=== PATIENT | female | born 1995 | race Two or more races ===

== ENCOUNTER 2020-06-27 07:45 | Outpatient (REF) | payer OTHER, MEDICAID, SELFPAY | END 2020-06-27 07:46 | disposition home or self-care (01) | LOC: HO.LAB 07:45 | PROVIDERS: Visit Provider Internal Medicine | DX: Z20.822 Contact with and (suspected) exposure to COVID-19 (principal) | CPT/HCPCS: 36415; C9803; U0003; U0005 ==

== ENCOUNTER 2021-02-13 17:44 | Emergency (ER) | payer OTHER, MEDICAID, SELFPAY ==
--- NOTE | 2021-02-13 17:48 | ECG_ITS ---
Test Reason : CHEST PAIN Blood Pressure : / mmHG Vent. Rate : 068 BPM Atrial Rate : 068 BPM P-R Int : 130 ms QRS Dur : 076 ms QT Int : 426 ms P-R-T Axes : 018 063 025 degrees QTc Int : 452 ms Normal sinus rhythm with sinus arrhythmia Normal ECG No significant changes seen Referred By: Generic ED Physician Electronically Signed By:SUE RAMIREZ MD
[2021-02-13 19:33] VITALS: BP 134/80; PULSE 89; RESP 20; TEMP 36.7; O2SAT 100; BMI 34.0
--- NOTE | 2021-02-13 19:41 | PC.NURSE ---
charge made aware pt is in the waiting room with a iv.
--- NOTE | 2021-02-13 20:55 | ED.GENADULT ---
HPI - General Adult General Chief complaint: General Medical Stated complaint: chest burning/extremity tingling Time Seen by Provider: 02/13/21 20:55 Source: patient Mode of arrival: ambulatory Limitations: no limitations History of Present Illness HPI narrative: Patient feel burning sensation to left side of the chest is on levothyroxine for last 3 weeks denies any palpitation or extra beats no shortness of breath no stomach issues chest pain increased on palpation and movements patient TSH was 8 in 11/09 Related Data Allergies Allergy/AdvReac Type Severity Reaction Status Date / Time baclofen [BACLOFEN] Allergy Unknown UNKNOWN Unverified 01/07/20 18:03 bee pollen [BEE STINGS] Allergy Unknown HIVES Unverified 01/07/20 18:03 tomato [TOMATO] Allergy Unknown HIVES Unverified 01/07/20 18:03 Review of Systems Review of Systems: Yes all other systems are reviewed and are negative [facility]LY [facility] Past Medical History Medical History Hyperthyroidism Social History Social History Advance Directives: No Advance Directives Information Provided: No Patient : No Physical Exam Vital Signs: Vital Signs: Last Vital Signs Temp 98.1 F 02/13/21 19:33 Pulse 89 02/13/21 19:33 Resp 20 02/13/21 19:33 BP 134/80 02/13/21 19:33 Pulse Ox 100 02/13/21 19:33 Body Mass Index 34.0 Appearance: Alert. Oriented X3. No acute distress. Eyes: No pallor icterus ENT: Pharynx normal. Oral Mucosa moist Neck: Normal inspection. Neck supple. CVS: Normal heart rate and rhythm. Pulses normal. Respiratory: No respiratory distress. Equal air entry bilateral, no wheezing/rales/rhonchi left chest wall tender+ at 2nd intercostal space Abdomen: Soft and nontender. Bowel sounds are present, no mass palpable, no CVA tenderness Skin: Skin warm and dry. Normal skin color. Normal skin turgor. Extremities: No lower extremity edema. No calf tenderness Neuro: Oriented X 3. Medical Decision Making Lab Data Lab results reviewed: Yes I reviewed the patient's lab results. Labs: Lab Results 10/25/21 10/25/21 Range/Units 21:34 21:34 Troponin I High Sens < 3.5 (<3.5-17.0) ng/L TSH 7.07 H (0.32-4.0) uIU/mL ECG Data Attestation: I personally reviewed and interpreted this ECG as follows: Interpretation: Normal sinus rhythm heart rate 68 beats per minute no acute ST-T changes no acute ischemia Discharge Plan Discharge Clinical Impression: Atypical chest pain Patient Disposition: Home, Self-Care Instructions: Noncardiac Chest Pain (ED) Additional Instructions: Continue your levothyroxine and follow with PCP
[2021-02-13 22:04] LABS: Troponin-I High Sensitivity < 3.5 ng/L (<3.5-17.0)
[2021-02-13 22:20] LABS: Thyroid Stimulating Hormone 7.07 uIU/mL (0.32-4.0)
--- NOTE | 2021-02-13 22:37 | PC.NURSE ---
Pt is resting in bed, report chest discomfort /burning believes it related to thyroid medication. EKG completed and labs collected .
[2021-02-13 22:41] VITALS: BP 120/90; PULSE 81; RESP 15; TEMP 36.6; O2SAT 98
== END 2021-02-13 23:06 | disposition home or self-care (01) ==
PROVIDERS: Emergency Provider Internal Medicine
DX: R07.89 Other chest pain (principal); E05.90 Thyrotoxicosis, unspecified without thyrotoxic crisis or storm; Z79.899 Other long term (current) drug therapy
CPT/HCPCS: 36415; 84443; 84484; 93005; 99283; 99284

== ENCOUNTER 2023-05-09 00:34 | Emergency (ER) | payer OTHER, SELFPAY ==
--- NOTE | ~2023-05-09 | US_ITS ---
EXAMINATION: US PELVIS CLINICAL INFORMATION: Bleeding. COMPARISON: None available. TECHNIQUE: Ultrasound of the pelvis is performed using both transabdominal and transvaginal transducers along with Doppler. Transvaginal imaging is performed due to inadequate visualization transabdominally. FINDINGS: Uterus: The uterus is anteverted and measures 7.6 x 3.5 x 4.5 cm. No myometrial lesions are seen. Nabothian cysts are noted. The endometrium is heterogeneous and hypervascular measuring up to 1.1 cm. The uterus is smooth in contour and has normal myometrial echogenicity. No visible fibroid. Adnexa: Both ovaries are visualized. There is normal color flow to the adnexa. There is no ovarian torsion. There is no pelvic ascites or fluid collection. Right ovary measures 4.2 x 2.2 x 2.3 cm. Left ovary measures 3.5 x 2.6 x 3.1 cm. There is a small amount of free fluid within the cul-de-sac likely physiologic. US/US pelvic and transvaginal IMPRESSION: 1. The endometrium is heterogeneous and hypervascular measuring up to 1.1 cm. 2. Nabothian cysts are noted. 3. Otherwise unremarkable examination.
[2023-05-09 00:38] VITALS: BP 143/87; PULSE 100; RESP 16; TEMP 36.9; O2SAT 98; BMI 34.9
--- NOTE | 2023-05-09 01:06 | ECG_ITS ---
Test Reason : WEAKNESS Blood Pressure : / mmHG Vent. Rate : 060 BPM Atrial Rate : 060 BPM P-R Int : 132 ms QRS Dur : 074 ms QT Int : 414 ms P-R-T Axes : 025 048 013 degrees QTc Int : 414 ms Sinus rhythm with marked sinus arrhythmia Otherwise normal ECG When compared with ECG of 13-FEB-2021 21:15, No significant change was found Referred By: Lacy Martinez Electronically Signed By:PRATIK TOLENTINO
[2023-05-09 01:27] LABS: Basophils Absolute Auto 0.1 X10*3/uL (0.0-0.2); Basophils Percent Auto 0.6 % (0-2); Eosinophils Absolute Auto 0.3 X10*3/uL (0.0-0.4); Eosinophils Percent Auto 3.1 % (0-4); Hematocrit 36.9 % (37.0-47.0); Hemoglobin 12.2 g/dl (12.0-16.0); Imm Gran Abs Auto 0.03 X10*3/uL (0.00-0.03); Imm Gran Pct Auto 0.3 % (0.0-0.4); Lymphocytes Absolute Auto 2.8 X10*3/uL (1.2-4.9); Lymphocytes Percent Auto 32.6 % (20-40); MANUAL DIFF FLAG NO; Mean Corpuscular HGB Conc 33.1 g/dl (31.0-35.0); Mean Corpuscular Hemoglobin 30.3 pg (27.0-33.0); Mean Corpuscular Volume 91.6 fL (80.0-98.0); Monocytes Absolute Auto 0.6 X10*3/uL (0.1-1.2); Monocytes Percent Auto 6.4 % (2-11); Neutrophils Absolute Auto 4.9 x10*3/uL (2.0-8.3); Platelet Count 326 X10*3/uL (160-400); Red Blood Count 4.03 X10*6/uL (4.20-5.50); Red Cell Distribution Width 12.5 % (11.0-16.0); White Blood Count 8.6 X10*3/uL (4.8-10.8)
[2023-05-09 01:34] LABS: Prothrombin Time 11.7 SEC (11.1-13.3)
[2023-05-09 01:37] LABS: Partial Thromboplastin Time 31.2 SEC (26.0-36.4)
--- NOTE | 2023-05-09 01:39 | ED.FEMALEGU ---
HPI - Female Genitourinary General Chief complaint: Vaginal Bleeding Stated complaint: Vaginal Bleeding Time Seen by Provider: 05/09/23 01:02 Source: patient and family Mode of arrival: ambulatory Limitations: no limitations History of Present Illness HPI Narrative: Patient comes to the emergency room accompanied by her aunt. Patient states that she has history of PCOS and history of heavy vaginal bleeding. Patient denies any previous history of pregnancies, patient states she is trying to become . However, for the last 3 days, patient has been bleeding heavier than usual, continuously passing blood clots. Patient states that about a week ago, she was not bleeding as bad, she called her primary care physician/OB Gyne and she was prescribed medroxyprogesterone. Patient states that since she started taking the medication, the bleeding worsened. Patient denies fever chills. Patient states that she also feels a lot of pressure when she urinates, no flank pain, no fever or chills. No dysuria. Unclear if she has hematuria due to the continues vaginal bleeding. Related Data Previous Rx's Medication Instructions Recorded tranexamic acid 650 mg tablet 650 mg PO TID 5 days #15 tabs 05/09/23 Allergies Allergy/AdvReac Type Severity Reaction Status Date / Time baclofen [BACLOFEN] Allergy Unknown UNKNOWN Verified 05/09/23 00:37 bee pollen [BEE STINGS] Allergy Unknown HIVES Verified 05/09/23 00:37 tomato [TOMATO] Allergy Unknown HIVES Verified 05/09/23 00:37 Review of Systems Review of Systems: Constitutional : No Weight loss, No Fever, No Chills, No Night Sweats, No Fatigue, No Malaise ENT/Mouth : No Hearing loss, No Ear Pain, No Nasal Congestion, No Sinus Pain, No Hoarseness, No sore throat, No Rhinorrhea, No Swallowing Difficulty Eyes: No Eye Pain, No Swelling, No Redness, No Foreign Body, No Discharge, No Vision Changes Cardiovascular : No Chest Pain, No SOB, No Dyspnea on Exertion, No Orthopnea, No Edema, No Palpitations Respiratory : No Cough, No Sputum, No Wheezing, No Smoke Exposure, No Dyspnea Gastrointestinal : No Nausea, No Vomiting, No Diarrhea, No Constipation, No abdominal Pain, No Hematochezia, No Melena Genitourinary : Complaining of heavy irregular vaginal bleeding, No Dysuria, No Urinary Frequency, No Hematuria, No Urinary Incontinence, No Urgency, No Flank Pain, No Urinary Flow Changes, No Hesitancy Musculoskeletal : No joint pain, No Myalgias, No Joint Swelling Skin : No Skin Lesions, No rash Neuro : No Weakness, No Numbness, No Paresthesias, No Loss of Consciousness, No Dizziness, No Headache Psych : No Anxiety/Panic, No Depression, No SI/HI/AH/VH, No Social Issues, Heme/Lymph: No Bruising, No Bleeding,No Lymphadenopathy Endocrine : No Polyuria, No Polydipsia, No Temperature Intolerance PMFSH Past Medical History Onset Date is defined in the Problem List Problems that require an onset date and time if occurred within 24 hrs of arrival to the ED Aortic Dissection and Rupture; Neurologic impairment; Cardiopulmonary Arrest; Endotracheal Intubation; Insertion or Replacement of Mechanical Circulatory Assist Device Medical History (Updated 05/09/23 @ 05:46 by Lacy Martinez MD) Menorrhagia PCOS (polycystic ovarian syndrome) Hyperthyroidism Social History Social History Alcohol intake: current Alcohol intake frequency: holidays/special occasions only Patient Tobacco Use Status: Never used Tobacco Advance Directives: No Advance Directives Information Provided: Yes Patient : No Physical Exam Vital Signs: Vital Signs: Last Vital Signs Temp 98.1 F 05/09/23 01:42 Pulse 62 05/09/23 01:42 Resp 16 05/09/23 01:42 BP 120/76 05/09/23 01:42 Pulse Ox 97 05/09/23 01:42 O2 Del Method Room Air 05/09/23 01:42 BMI result Body Mass Index 34.9 Const: Other: Appearance: Alert. Oriented X3. No acute distress. Eyes: Pupils equal, round and reactive to light. ENT: Pharynx normal. Neck: Normal inspection. Neck supple. No lymph nodes noted. No crepitus CVS: Normal heart rate and rhythm. Pulses normal. Normal S1 and S2 Respiratory: No respiratory distress. Breath sounds normal. No Wheezing. No rales Abdomen: Soft and nontender. No rigidity. No distention. : Moderate vaginal bleeding, large amount of blood clots in the vaginal vault, no tissue or clots seen in the cervical os, no obvious lacerations in the vaginal wall Skin: Skin warm and dry. Normal skin color. Normal skin turgor. Extremities: No lower extremity edema. No Lacerations. No Rash Neuro: Oriented X 3. No motor deficit. No sensory deficit. Moving all extremities. No slurred speech. CN 2 through 12 grossly intact Psych: calm, cooperative, normal affect Course Course Course Narrative: -patient has a fair amount of blood clots and blood in the vaginal canal. -patient currently taking medroxyprogesterone which has been prescribed by her OB Gyne. -patient being given p.o. TXA. Patient given Zofran and Compazine prior to TXA for nausea prevention Medications Administered Generic Name Dose Route Start Last Admin Trade Name Freq PRN Reason Stop Dose Admin Tranexamic Acid 1,000 mg/ 260 mls @ 32.5 mls/hr 05/09/23 01:36 05/09/23 02:06 Sodium Chloride IV 05/09/23 09:35 32.5 mls/hr .Q8H ONE Administration Discontinued Medications Generic Name Dose Route Start Last Admin Trade Name Freq PRN Reason Stop Dose Admin Acetaminophen 975 mg 05/09/23 03:58 05/09/23 04:05 Acetaminophen 325 Mg Tablet PO 05/09/23 03:59 975 mg ONCE ONE Administration Ondansetron HCl 4 mg 05/09/23 01:36 05/09/23 01:46 Ondansetron Odt 4 Mg Tab.Rapdis TRANSLINGU 05/09/23 01:37 4 mg ONCE ONE Administration Prochlorperazine Maleate 10 mg 05/09/23 01:36 05/09/23 01:46 Prochlorperazine Maleate 5 Mg Tablet PO 05/09/23 01:37 10 mg ONCE ONE Administration Medical Decision Making Medical Decision Making [facility] Narrative: -my interpretation of labs: Normal hemoglobin -ultrasound pending -patient denies any history of bleeding disorders or blood clot disorders, no migraine history, nonsmoker -an H&H was drawn, the levels of hemoglobin decreased from 12.2-11.2. However, after speaking with the patient's nurse, the blood was drawn from a line, probably diluted with saline. -patient reports that after taking p.o. tranexamic acid, the bleeding has significantly slowed down. -we will repeat H&H from direct venous puncture in 1 hour -my interpretation of ultrasound: Endometrium seems to be approximately a cm thick -repeat H&H shows hemoglobin of 11. However, the vaginal bleeding significantly decreased. Patient is asymptomatic. -I discussed the patient with Dr. Carter. Recommendations: Discontinue progesterone, start listed a 1300 mg p.o. t.i.d. for 3-5 days. Patient instructed to call her OB Gyne today. Patient has an appointment pending for tomorrow. I discussed with the patient that ideally she should be seen today. If anything changes between the time of discharge and her appointment with her OBGYN, she needs to come immediately to the emergency room. Patient agrees with plan. Differential Diagnosis Differential Diagnoses: The differential diagnosis associated with the presentation includes (Menorrhagia, metrorrhagia, uterine polyps, fibroids, PCOS) Admission/Observation Consideration of admission/observation: Escalation of care including admission/observation considered (Given patient's symptoms and physical exam, admission was considered) Lab Data MDM Lab Attestation statement: I reviewed the patient's lab results. 05/09/23 04:34 05/09/23 01:20 Labs: Lab Results 05/09/23 05/09/23 05/09/23 Range/Units 01:20 01:45 03:28 WBC 8.6 (4.8-10.8) X10*3/uL RBC 4.03 L (4.20-5.50) X10*6/uL Hgb 12.2 11.2 L (12.0-16.0) g/dl Hct 36.9 L 33.9 L (37.0-47.0) % MCV 91.6 (80.0-98.0) fL MCH 30.3 (27.0-33.0) pg MCHC 33.1 (31.0-35.0) g/dl RDW 12.5 (11.0-16.0) % Plt Count 326 (160-400) X10*3/uL MPV 11.0 (9.4-12.3) fL Immature Gran % (Auto) 0.3 (0.0-0.4) % Neut % (Auto) 57.0 (45-73) % Lymph % (Auto) 32.6 (20-40) % [place] % (Auto) 6.4 (2-11) % Eos % (Auto) 3.1 (0-4) % Baso % (Auto) 0.6 (0-2) % Lymph # (Auto) 2.8 (1.2-4.9) X10*3/uL [place] # (Auto) 0.6 (0.1-1.2) X10*3/uL Eos # (Auto) 0.3 (0.0-0.4) X10*3/uL Baso # (Auto) 0.1 (0.0-0.2) X10*3/uL Abs Immat Gran (auto) 0.03 (0.00-0.03) X10*3/uL Absolute Neuts (auto) 4.9 (2.0-8.3) x10*3/uL Absolute Nucleated RBC 0.000 (0.0-0.012) X10*3/uL Nucleated RBC % (auto) 0.0 (0.0-0.2) /100WBC PT 11.7 (11.1-13.3) SEC INR 1.0 (0.9-1.1) APTT 31.2 (26.0-36.4) SEC Sodium 139 (135-145) mmol/L Potassium 3.9 (3.3-5.1) mmol/L Chloride 108 (96-108) mmol/L Carbon Dioxide 22 (22-29) mmol/L Anion Gap 13 (12-20) BUN 17 H (9-16) mg/dL Creatinine 0.75 (0.5-1.4) mg/dL Estim Creat Clear Calc 111.6 Estimated GFR > 60 Random Glucose 89 (60-115) mg/dL Calcium 9.9 (8.4-10.2) mg/dL Total Bilirubin 0.3 (0.0-1.0) mg/dL AST 18 (5-31) U/L ALT 20 (0-31) U/L Alkaline Phosphatase 86 (39-117) U/L Troponin I High Sens < 2.7 (<3.5-17.0) ng/L Total Protein 7.9 (6.5-8.0) g/dL Albumin 4.3 (3.5-5.0) g/dL Beta HCG, Quant < 2 mIU/mL Urine Color Straw Urine Appearance Cloudy Urine pH 5.5 (5.0-9.0) Ur Specific [place] 1.025 (1.005-1.025) Urine Protein Negative (Neg-Trace) mg/dL Urine Glucose (UA) Negative (Negative) mg/dL Urine Ketones Negative (Negative) mg/dL Urine Blood Large (3+) H (Negative) Urine Nitrite Negative (Negative) Ur Leukocyte Esterase Trace H (Negative) Urine RBC >20 H (0-2) /HPF Urine WBC 0-5 (0-5) /HPF Ur Squamous Epith Cells 0-2 (0-2) /HPF Urine Bacteria None Seen (None Seen) Hyaline Casts 0-2 (0-2) /LPF 05/09/23 Range/Units 04:34 WBC 8.4 (4.8-10.8) X10*3/uL RBC 3.66 L (4.20-5.50) X10*6/uL Hgb 11.0 L (12.0-16.0) g/dl Hct 33.3 L (37.0-47.0) % MCV 91.0 (80.0-98.0) fL MCH 30.1 (27.0-33.0) pg MCHC 33.0 (31.0-35.0) g/dl RDW 12.3 (11.0-16.0) % Plt Count 315 (160-400) X10*3/uL MPV 10.7 (9.4-12.3) fL Immature Gran % (Auto) 0.2 (0.0-0.4) % Neut % (Auto) 59.3 (45-73) % Lymph % (Auto) 30.9 (20-40) % [place] % (Auto) 6.1 (2-11) % Eos % (Auto) 3.0 (0-4) % Baso % (Auto) 0.5 (0-2) % Lymph # (Auto) 2.6 (1.2-4.9) X10*3/uL [place] # (Auto) 0.5 (0.1-1.2) X10*3/uL Eos # (Auto) 0.3 (0.0-0.4) X10*3/uL Baso # (Auto) 0.0 (0.0-0.2) X10*3/uL Abs Immat Gran (auto) 0.02 (0.00-0.03) X10*3/uL Absolute Neuts (auto) 5.0 (2.0-8.3) x10*3/uL Absolute Nucleated RBC 0.000 (0.0-0.012) X10*3/uL Nucleated RBC % (auto) 0.0 (0.0-0.2) /100WBC PT (11.1-13.3) SEC INR (0.9-1.1) APTT (26.0-36.4) SEC Sodium (135-145) mmol/L Potassium (3.3-5.1) mmol/L Chloride (96-108) mmol/L Carbon Dioxide (22-29) mmol/L Anion Gap (12-20) BUN (9-16) mg/dL Creatinine (0.5-1.4) mg/dL Estim Creat Clear Calc Estimated GFR Random Glucose (60-115) mg/dL Calcium (8.4-10.2) mg/dL Total Bilirubin (0.0-1.0) mg/dL AST (5-31) U/L ALT (0-31) U/L Alkaline Phosphatase (39-117) U/L Troponin I High Sens (<3.5-17.0) ng/L Total Protein (6.5-8.0) g/dL Albumin (3.5-5.0) g/dL Beta HCG, Quant mIU/mL Urine Color Urine Appearance Urine pH (5.0-9.0) Ur Specific [place] (1.005-1.025) Urine Protein (Neg-Trace) mg/dL Urine Glucose (UA) (Negative) mg/dL Urine Ketones (Negative) mg/dL Urine Blood (Negative) Urine Nitrite (Negative) Ur Leukocyte Esterase (Negative) Urine RBC (0-2) /HPF Urine WBC (0-5) /HPF Ur Squamous Epith Cells (0-2) /HPF Urine Bacteria (None Seen) Hyaline Casts (0-2) /LPF Independent Interpretation I performed an independent interpretation of an: Ultrasound Radiology Impression Discussion of test interpretation with radiology: I have reviewed the radiologist's reading. Radiologist Impression: FINDINGS: Uterus: The uterus is anteverted and measures 7.6 x 3.5 x 4.5 cm. No myometrial lesions are seen. Nabothian cysts are noted. The endometrium is heterogeneous and hypervascular measuring up to 1.1 cm. The uterus is smooth in contour and has normal myometrial echogenicity. No visible fibroid. Adnexa: Both ovaries are visualized. There is normal color flow to the adnexa. There is no ovarian torsion. There is no pelvic ascites or fluid collection. Right ovary measures 4.2 x 2.2 x 2.3 cm. Left ovary measures 3.5 x 2.6 x 3.1 cm. There is a small amount of free fluid within the cul-de-sac likely physiologic. US/US pelvic and transvaginal IMPRESSION: 1. The endometrium is heterogeneous and hypervascular measuring up to 1.1 cm. 2. Nabothian cysts are noted. 3. Otherwise unremarkable examination Independent Historian Clinical information obtained from an independent historian. History obtained from or confirmed by: Other (Aunt) Critical Care Time Critical Care Time Critical Care Time: Yes Total Critical Care Time: 75 Attestation: I have personally provided critical care time. Time includes review of lab data, radiology results, discussion with consultants, and monitoring for potential decompensation. Intervention performed as documented. Discharge Plan Discharge Clinical Impression: Menorrhagia Patient Disposition: Home, Self-Care Instructions: Dysfunctional Uterine Bleeding (ED) Additional Instructions: Please follow-up with your primary care physician tomorrow. If you have any worsening or new symptoms, please return to the emergency room or call 911 Prescriptions: New tranexamic acid 650 mg tablet 650 mg PO TID 5 Days Qty: 15 0RF Rx Instructions: Take medication for 3 days. If bleeding continues, continue medication up to 5 days
[2023-05-09 01:42] VITALS: BP 120/76; PULSE 62; RESP 16; TEMP 36.7; O2SAT 97
[2023-05-09] MEDS: Ondansetron ODT 4 MG TAB.RAPDIS TRANSLINGU (01:46)
[2023-05-09] MEDS: Prochlorperazine Maleate 5 MG TABLET 10 MG PO (01:46)
[2023-05-09 01:48] LABS: Alanine Aminotransferase 20 U/L (0-31); Albumin Level 4.3 g/dL (3.5-5.0); Alkaline Phosphatase 86 U/L (39-117); Anion Gap 13 (12-20); Aspartate Amino Transferase 18 U/L (5-31); Bilirubin Total 0.3 mg/dL (0.0-1.0); Blood Urea Nitrogen 17 mg/dL (9-16); Calcium 9.9 mg/dL (8.4-10.2); Carbon Dioxide 22 mmol/L (22-29); Chloride 108 mmol/L (96-108); Creatinine Clr Calc Pharmacy 111.6; Estimated Glomerular Filt Rate > 60; Glucose Random 89 mg/dL (60-115); HCG Quantitative < 2 mIU/mL; Potassium 3.9 mmol/L (3.3-5.1); Sodium 139 mmol/L (135-145); Total Protein 7.9 g/dL (6.5-8.0); Troponin-I High Sensitivity < 2.7 ng/L (<3.5-17.0)
[2023-05-09 01:59] LABS: Appearance Urine Cloudy; Color Urine Straw; Glucose Urine UA Negative (Negative); Leukocyte Esterase Urine Trace (Negative); Nitrite Urine Negative (Negative); PH 5.5 (5.0-9.0); Specific Gravity - Urine 1.025 (1.005-1.025); UMIC TRIGGER UACC YES; Urine Blood Large (3+) (Negative); Urine Ketones Negative (Negative); Urine Protein Negative (Neg-Trace)
[2023-05-09 02:02] LABS: Bacteria Urine None Seen (None Seen); Hyaline Casts Urine 0-2 /LPF (0-2); RBC Urine >20 /HPF (0-2); Squamous Epithelial Cell Urine 0-2 /HPF (0-2); WBC Urine 0-5 /HPF (0-5)
[2023-05-09] MEDS: Tranexamic Acid 1,000 MG in 0.9 % Sodium Chloride 250 ML 32.5 MG IV (02:06)
--- NOTE | 2023-05-09 02:07 | PC.NURSE ---
TXA GIVEN PO BY PROVIDER VERBAL ORDER
[2023-05-09 03:33] LABS: Hematocrit 33.9 % (37.0-47.0); Hemoglobin 11.2 g/dl (12.0-16.0)
[2023-05-09] MEDS: Acetaminophen 325 MG TABLET 975 MG PO (04:05)
[2023-05-09 04:38] LABS: MANUAL DIFF FLAG NO
[2023-05-09 04:39] LABS: Basophils Percent Auto 0.5 % (0-2); Eosinophils Absolute Auto 0.3 X10*3/uL (0.0-0.4); Hematocrit 33.3 % (37.0-47.0); Imm Gran Abs Auto 0.02 X10*3/uL (0.00-0.03); Imm Gran Pct Auto 0.2 % (0.0-0.4); Lymphocytes Absolute Auto 2.6 X10*3/uL (1.2-4.9); Lymphocytes Percent Auto 30.9 % (20-40); Mean Corpuscular Hemoglobin 30.1 pg (27.0-33.0); Mean Platelet Volume 10.7 fL (9.4-12.3); Monocytes Absolute Auto 0.5 X10*3/uL (0.1-1.2); Monocytes Percent Auto 6.1 % (2-11); Neutrophils Percent Auto 59.3 % (45-73); Platelet Count 315 X10*3/uL (160-400); Red Blood Count 3.66 X10*6/uL (4.20-5.50); Red Cell Distribution Width 12.3 % (11.0-16.0); White Blood Count 8.4 X10*3/uL (4.8-10.8)
[2023-05-09 05:49] VITALS: BP 133/86; PULSE 77; RESP 16; TEMP 36.8; O2SAT 99
--- NOTE | 2023-05-09 06:15 | PM.GYNCN ---
[employer]OUSSE[employer] CONSULTANT - CN: HPI Data of Consult Consult date: 05/09/23 Primary Care Provider: Yordy Restrepo DO Consult Narrative Narrative: I was consulted on Nava Chua who is a 28 year old female presenting to the emergency room with heavy vaginal bleeding for the last 3 days, patient has been bleeding heavier than usual associated with passage of blood clots. Patient states that about a week ago, she was not bleeding as bad, she called her clinical review nurse and she was prescribed medroxyprogesterone. Patient states that since she started taking the medication, the bleeding worsened. No other associated symptom cc:: CC: OB PMFSH Past Medical History Medical History Menorrhagia PCOS (polycystic ovarian syndrome) Hyperthyroidism Social History Social History Alcohol intake: current Alcohol intake frequency: holidays/special occasions only Patient Tobacco Use Status: Never used Tobacco Advance Directives: No Advance Directives Information Provided: Yes Patient : No Meds Allergies Allergy/AdvReac Type Severity Reaction Status Date / Time baclofen [BACLOFEN] Allergy Unknown UNKNOWN Verified 05/09/23 00:37 bee pollen [BEE STINGS] Allergy Unknown HIVES Verified 05/09/23 00:37 tomato [TOMATO] Allergy Unknown HIVES Verified 05/09/23 00:37 [employer] Physical Exam Vitals Vital signs: Temp Pulse Resp BP Pulse Ox O2 Del Method 98.3 F 77 16 133/86 99 Room Air 05/09/23 05:49 05/09/23 05:49 05/09/23 05:49 05/09/23 05:49 05/09/23 05:49 05/09/23 05:49 BMI result Body Mass Index 34.9 Additional Comments: Physical exam described by Dr. Martinez as the following: initial pelvic exam showed moderate amount of blood was presence of blood clots, the patient was given tranexamic acid orally in 2 hours afterwards repeat pelvic exam showed last bleeding [id number] , no other significant finding [employer] CONS[employer] - Results Labs 05/09/23 04:34 05/09/23 01:20 Labs: Short CBC 05/09/23 05/09/23 05/09/23 Range/Units 01:20 03:28 04:34 WBC 8.6 8.4 (4.8-10.8) X10*3/uL Hgb 12.2 11.2 L 11.0 L (12.0-16.0) g/dl Hct 36.9 L 33.9 L 33.3 L (37.0-47.0) % Plt Count 326 315 (160-400) X10*3/uL BMP 05/09/23 01:20 Sodium 139 Potassium 3.9 Chloride 108 Carbon Dioxide 22 BUN 17 H Creatinine 0.75 Calcium 9.9 Liver Function 05/09/23 Range/Units 01:20 Total Bilirubin 0.3 (0.0-1.0) mg/dL AST 18 (5-31) U/L ALT 20 (0-31) U/L Alkaline Phosphatase 86 (39-117) U/L Albumin 4.3 (3.5-5.0) g/dL Urine 05/09/23 Range/Units 01:45 Urine Color Straw Urine Appearance Cloudy Urine pH 5.5 (5.0-9.0) Ur Specific [place] 1.025 (1.005-1.025) Urine Protein Negative (Neg-Trace) mg/dL Urine Glucose (UA) Negative (Negative) mg/dL Imaging US - abdomen: Radiologist's impression: ITS Impressions Pelvic/Transvag US 05/09/23 02:59 IMPRESSION: 1. The endometrium is heterogeneous and hypervascular measuring up to 1.1 cm. 2. Nabothian cysts are noted. 3. Otherwise unremarkable examination. Assessment and Plan (1) Abnormal uterine bleeding (AUB): Status: Acute Recommended the following to Dr Martinez: The patient needs endometrial biopsy to rule out endometrial pathology including endometrial hyperplasia and/or malignancy Discontinue progesterone and start Lysteda 1300 mg p.o. t.i.d. for 3-5 days and instructions to be given to patient to call her OBGYN today to be evaluated, iron sulfate 325 mg p.o. q.d., to come back to emergency room in case of recurrence of her heavy vaginal bleeding. I spent a total of 20 minutes reviewing the chart, communicating to the emergency room provider and documenting the medical record
== END 2023-05-09 05:56 | disposition home or self-care (01) ==
PROVIDERS: Emergency Provider Emergency Medicine; PCP Student in an Organized Health Care Education/Training Program
DX: N92.0 Excessive and frequent menstruation with regular cycle (principal); I49.8 Other specified cardiac arrhythmias; R10.2 Pelvic and perineal pain; Z79.899 Other long term (current) drug therapy
CPT/HCPCS: 36415; 76830; 76856; 80053; 81001; 84484; 84702; 85014; 85018; 85025; 85610; 85730; 93005; 99284; 99285

== ENCOUNTER → 2023-05-09 01:06 | Outpatient (BNV) | payer OTHER, SELFPAY | PROVIDERS: Emergency Provider Emergency Medicine; PCP Student in an Organized Health Care Education/Training Program; Visit Provider Internal Medicine | DX: R53.1 Weakness (principal) | CPT/HCPCS: 93010 ==

== ENCOUNTER → 2023-05-09 01:08 | Outpatient (BNV) | payer OTHER, SELFPAY | PROVIDERS: Emergency Provider Emergency Medicine; PCP Student in an Organized Health Care Education/Training Program; Visit Provider Obstetrics & Gynecology | DX: N93.9 Abnormal uterine and vaginal bleeding, unspecified (principal) | CPT/HCPCS: 99283 ==

== ENCOUNTER 2023-09-23 12:50 | Emergency (ER) | payer OTHER, SELFPAY ==
--- NOTE | 2023-09-23 | ECG_ITS ---
Test Reason : CHEST PAIN Blood Pressure : / mmHG Vent. Rate : 056 BPM Atrial Rate : 056 BPM P-R Int : 140 ms QRS Dur : 078 ms QT Int : 436 ms P-R-T Axes : 015 026 012 degrees QTc Int : 420 ms Sinus bradycardia with marked sinus arrhythmia Otherwise normal ECG When compared with ECG of 09-MAY-2023 01:51, No significant change was found Referred By: Generic ED Physician Electronically Signed By:SARAN CONTRERAS MD
[2023-09-23 14:02] VITALS: BP 130/82; PULSE 73; RESP 16; TEMP 36.1; O2SAT 98; BMI 35.4
--- NOTE | 2023-09-23 14:09 | ED.GENADULT ---
HPI - General Adult General Chief complaint: Chest Pain Stated complaint: chest pain Time Seen by Provider: 09/23/23 14:21 Source: patient Mode of arrival: ambulatory Limitations: no limitations History of Present Illness ED Provider: Kaycee Mendiola PA-C HPI narrative: 28 y/o female landing to the ER for evaluation of transient burning chest pain that started when she was at work around 1230. Patient was getting real to her lunch break when she felt a burning sensation in the middle of her chest. It lasted about an hour. It did not radiate. No self resolved. She reports she had some associated shortness of breath at the time. She told her I would advise her who told her to come to the ER for further evaluation. Patient denies any history of chest pain episodes in the past. She denies history of heartburn or acid reflux. She denies any leg swelling or recent travel. She has not on control. complaint: Chest pain Onset (ago): hour(s) Location: chest Radiation: non-radiation Severity: moderate Quality: burning Pain Consistency: now resolved Relieving factors: none Exacerbating factors: none Associated symptoms: denies other symptoms Treatments prior to arrival: none Related Data Previous Rx's ?Medication ?Instructions ?Recorded tranexamic acid 650 mg tablet 650 mg PO TID 5 days #15 tabs 05/09/23 Allergies Allergy/AdvReac Type Severity Reaction Status Date / Time baclofen [BACLOFEN] Allergy Unknown UNKNOWN Verified 09/23/23 14:02 bee pollen [BEE STINGS] Allergy Unknown HIVES Verified 09/23/23 14:02 tomato [TOMATO] Allergy Unknown HIVES Verified 09/23/23 14:02 Review of Systems Review of Systems: Yes all other systems are reviewed and are negative [facility] Past Medical History Medical History Menorrhagia PCOS (polycystic ovarian syndrome) Hyperthyroidism Social History Social History Alcohol intake: current Alcohol intake frequency: holidays/special occasions only Patient Tobacco Use Status: Never used Tobacco Advance Directives: No Advance Directives Information Provided: No Do you have a plan to hurt others: No Plan Physical Exam ED Vital Signs: Vital Signs - 24 hr 09/23/23 14:02 09/23/23 15:09 Temperature 97 F 97 F Pulse Rate 73 73 Respiratory Rate 16 16 Blood Pressure 130/82 130/82 Pulse Oximetry 98 98 Oxygen Delivery Method Room Air Room Air BMI result Body Mass Index 35.4 Appearance: Alert. Oriented X3. No acute distress. Head: normocephalic, atraumatic. Eyes: Pupils equal, round and reactive to light. ENT: Pharynx normal. No tonsillar swelling or exudate. Neck: Normal inspection. Neck supple. CVS: Normal heart rate and rhythm. Pulses normal. Respiratory: No respiratory distress. Breath sounds normal. Abdomen: Soft and nontender. +BS x4 Skin: Skin warm and dry. Normal skin color. Normal skin turgor. No rashes. Extremities: No lower extremity edema. No joint swelling. Neuro/psych: Oriented X 3. No motor deficit. No sensory deficit. CN II-XII intact. Normal speech and cognition. Course Course Course Narrative: RME- 28-year-old female presents for evaluation of burning chest pain that started while at work. Currently her symptoms have resolved but they lasted about 1 hour. She also endorse feeling ?weakness in my arms and legs. ? Denies any history of cardiac disease. She has not on control and denies any recent travel. Plan for cardiac workup Medical Decision Making Medical Decision Making [facility] Narrative: 28-year-old female with medical history besides PCOS who presents to the ER for evaluation of transient burning chest pain that occurred about 2 hours ago, so resolved. exam and clinical presentation are most consistent with acid reflux. low suspicion for cardiac etiology. PERC negative. EKG without ischemic changes and troponin negative. no need to repeat. patient counseled. stable for d/c home - counseled on GERD and dietary modifications and treatments Differential Diagnosis Differential Diagnoses: The differential diagnosis associated with the presentation includes atypical chest pain, GERD, anxiety, local suspicion for ACS or PE Lab Data [facility] Lab Attestation statement: I reviewed the patient's lab results. mild anemia, normal renal function, negative troponin 09/23/23 14:26 09/23/23 14:26 Labs: Lab Results 09/23/23 Range/Units 14:26 WBC 6.5 (4.8-10.8) X10*3/uL RBC 3.92 L (4.20-5.50) X10*6/uL Hgb 12.5 (12.0-16.0) g/dl Hct 35.7 L (37.0-47.0) % MCV 91.1 (80.0-98.0) fL MCH 31.9 (27.0-33.0) pg MCHC 35.0 (31.0-35.0) g/dl RDW 14.5 (11.0-16.0) % Plt Count 290 (160-400) X10*3/uL MPV 10.6 (9.4-12.3) fL Immature Gran % (Auto) 0.3 (0.0-0.4) % Neut % (Auto) 65.6 (45-73) % Lymph % (Auto) 24.3 (20-40) % [place] % (Auto) 5.7 (2-11) % Eos % (Auto) 3.6 (0-4) % Baso % (Auto) 0.5 (0-2) % Lymph # (Auto) 1.6 (1.2-4.9) X10*3/uL [place] # (Auto) 0.4 (0.1-1.2) X10*3/uL Eos # (Auto) 0.2 (0.0-0.4) X10*3/uL Baso # (Auto) 0.0 (0.0-0.2) X10*3/uL Abs Immat Gran (auto) 0.02 (0.00-0.03) X10*3/uL Absolute Neuts (auto) 4.2 (2.0-8.3) x10*3/uL Absolute Nucleated RBC 0.000 (0.0-0.012) X10*3/uL Nucleated RBC % (auto) 0.0 (0.0-0.2) /100WBC PT 12.3 (11.1-13.3) SEC INR 1.0 (0.9-1.1) Sodium 140 (135-145) mmol/L Potassium 3.6 (3.3-5.1) mmol/L Chloride 107 (96-108) mmol/L Carbon Dioxide 26 (22-29) mmol/L Anion Gap 11 L (12-20) BUN 16 (9-16) mg/dL Creatinine 0.72 (0.5-1.4) mg/dL Estim Creat Clear Calc 121.7 Estimated GFR > 60 Random Glucose 82 (60-115) mg/dL Calcium 9.5 (8.4-10.2) mg/dL Magnesium 2.0 (1.6-2.6) mg/dL Total Bilirubin 0.5 (0.0-1.0) mg/dL AST 19 (5-31) U/L ALT 19 (0-31) U/L Alkaline Phosphatase 68 (39-117) U/L Troponin I High Sens < 2.7 (<3.5-17.0) ng/L Total Protein 7.3 (6.5-8.0) g/dL Albumin 4.3 (3.5-5.0) g/dL Lipase 21 (8-78) U/L Beta HCG, Quant < 2 mIU/mL Independent Interpretation I performed an independent interpretation of an: EKG Interpretation: EKG with sinus tachycardia, sinus arrhythmia present, ventricular rate 56 beats per minute, normal CA interval, normal QTC, no ST segment elevation depressions. External Record Review External record reviewed: Prior outpatient labs and Prior outpatient radiology Tests considered The following testing was considered but not selected: Considered echo of the chest however low clinical suspicion for pneumothorax, pneumonia Prescription Management I considered prescription management with: Other ( antacid) Scores Heart Score History: -0- slightly suspicious ECG: -0- normal Age: -0- < or = 45 Risk factory: -0- no risk factors known Troponin: -0- < or = normal limit Score: 0 Risk: 1.7% Critical Care Time Critical Care Time Critical Care Time: No Discharge Plan Discharge Clinical Impression: Atypical chest pain Patient Disposition: Home, Self-Care Instructions: Noncardiac Chest Pain (ED) Additional Instructions: your lab workup today was unremarkable. EKG and blood work or your heart were normal. Your pain is mostly due to acid reflux you can take Prilosec, Pepcid, or Tums as needed reflux pain. Avoid food with high acid contacts or spicy foods. Recommend small frequent throughout the day. Follow-up with primary care doctor. If you develop new or worsening symptoms call 911 or come back to the ER for further evaluation. Prescriptions: No Action tranexamic acid 650 mg tablet 650 mg PO TID 5 Days Qty: 15 0RF Rx Instructions: Take medication for 3 days. If bleeding continues, continue medication up to 5 days Interventions: ED Discharge Assessment Last Done: 09/23/23 15:09 Discharge Date/Time: 09/23/23 15:10 Print Language: Vietnamese
[2023-09-23 14:30] LABS: MANUAL DIFF FLAG NO
[2023-09-23 14:31] LABS: Basophils Percent Auto 0.5 % (0-2); Eosinophils Absolute Auto 0.2 X10*3/uL (0.0-0.4); Eosinophils Percent Auto 3.6 % (0-4); Hematocrit 35.7 % (37.0-47.0); Hemoglobin 12.5 g/dl (12.0-16.0); Imm Gran Abs Auto 0.02 X10*3/uL (0.00-0.03); Imm Gran Pct Auto 0.3 % (0.0-0.4); Lymphocytes Absolute Auto 1.6 X10*3/uL (1.2-4.9); Lymphocytes Percent Auto 24.3 % (20-40); Mean Corpuscular Hemoglobin 31.9 pg (27.0-33.0); Mean Corpuscular Volume 91.1 fL (80.0-98.0); Mean Platelet Volume 10.6 fL (9.4-12.3); Monocytes Absolute Auto 0.4 X10*3/uL (0.1-1.2); Monocytes Percent Auto 5.7 % (2-11); Neutrophils Absolute Auto 4.2 x10*3/uL (2.0-8.3); Neutrophils Percent Auto 65.6 % (45-73); Platelet Count 290 X10*3/uL (160-400); Red Blood Count 3.92 X10*6/uL (4.20-5.50); Red Cell Distribution Width 14.5 % (11.0-16.0); White Blood Count 6.5 X10*3/uL (4.8-10.8)
[2023-09-23 14:36] LABS: Prothrombin Time 12.3 SEC (11.1-13.3)
[2023-09-23 14:50] LABS: Alanine Aminotransferase 19 U/L (0-31); Albumin Level 4.3 g/dL (3.5-5.0); Alkaline Phosphatase 68 U/L (39-117); Anion Gap 11 (12-20); Aspartate Amino Transferase 19 U/L (5-31); Bilirubin Total 0.5 mg/dL (0.0-1.0); Blood Urea Nitrogen 16 mg/dL (9-16); Calcium 9.5 mg/dL (8.4-10.2); Carbon Dioxide 26 mmol/L (22-29); Chloride 107 mmol/L (96-108); Creatinine Clr Calc Pharmacy 121.7; Estimated Glomerular Filt Rate > 60; Glucose Random 82 mg/dL (60-115); Lipase 21 U/L (8-78); Potassium 3.6 mmol/L (3.3-5.1); Sodium 140 mmol/L (135-145); Total Protein 7.3 g/dL (6.5-8.0)
[2023-09-23 14:52] LABS: HCG Quantitative < 2 mIU/mL; Troponin-I High Sensitivity < 2.7 ng/L (<3.5-17.0)
[2023-09-23 15:09] VITALS: BP 130/82; PULSE 73; RESP 16; TEMP 36.1; O2SAT 98
== END 2023-09-23 15:10 | disposition home or self-care (01) ==
PROVIDERS: Physician Assistant; Emergency Provider Emergency Medicine; PCP Student in an Organized Health Care Education/Training Program
DX: R07.89 Other chest pain (principal); R00.1 Bradycardia, unspecified
CPT/HCPCS: 36415; 80053; 83690; 83735; 84484; 84702; 85025; 85610; 93005; 99283

== ENCOUNTER → 2023-09-23 13:33 | Outpatient (BNV) | payer OTHER, SELFPAY | PROVIDERS: Emergency Provider Emergency Medicine; PCP Student in an Organized Health Care Education/Training Program; Visit Provider Internal Medicine Cardiovascular Disease | DX: R07.9 Chest pain, unspecified (principal) | CPT/HCPCS: 93010 ==

== ENCOUNTER 2024-09-16 12:10 | Emergency (ER) | payer BC, SELFPAY ==
[2024-09-16 13:11] VITALS: BP 134/95; PULSE 78; RESP 16; TEMP 36.5; O2SAT 100; BMI 34.8
--- NOTE | 2024-09-16 13:12 | ED_ITS ---
HPI - General Adult General Chief complaint: Dizziness Stated complaint: High Blood Pressure, Chest Discomfort Time Seen by Provider: 09/16/24 15:47 Source: patient Mode of arrival: ambulatory Limitations: no limitations History of Present Illness ED Provider: OSBALDO AVELAR narrative: 29 yo female with PMH of PCOS and hyperthyroidism here with c/o being at work then feeling hot and weak. She notes she had tingles in her R arm as well. She has hx of syncope x 2. She has no CP/SOB or dyspnea. Her school checked her BP and it was high. She is feeling better and hungry while in triage. She denies any other symptoms or infections. Last week she had a hysteroscopy but has no complaints. 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, right and upper extremity Radiation: non-radiation Severity: mild Quality: other (tingling) Pain Consistency: now resolved Relieving factors: none Exacerbating factors: none Associated symptoms: denies other symptoms Treatments prior to arrival: none Related Data Previous Rx's ?Medication ?Instructions ?Recorded tranexamic acid 650 mg tablet 650 mg PO TID 5 days #15 tabs 05/09/23 Allergies Allergy/AdvReac Type Severity Reaction Status Date / Time latex Allergy Severe Hives Verified 09/16/24 13:18 baclofen [BACLOFEN] Allergy Unknown UNKNOWN Verified 09/16/24 13:18 bee pollen [BEE STINGS] Allergy Unknown HIVES Verified 09/16/24 13:18 tomato [TOMATO] Allergy Unknown HIVES Verified 09/16/24 13:18 Review of Systems 2 Review of Systems: Constitutional : No Fever, No Chills, No Fatigue, pos sweats ENT/Mouth : No sore throat, No Rhinorrhea Eyes: No Eye Pain, No Swelling, No Redness Cardiovascular : No Chest Pain, No SOB, No Dyspnea on Exertion Respiratory : No Cough, No Sputum Gastrointestinal : No Nausea, No Vomiting, No Diarrhea, No abdominal Pain Genitourinary : No Dysuria, No Urinary Frequency, No Hematuria, Musculoskeletal : No joint pain, No Myalgias, No Joint Swelling Skin : No Skin Lesions, No rash Neuro : No Weakness, pos Numbness, pos Dizziness, no Headache Psych : No Anxiety/Panic, No Depression All other systems reviewed and are negative [facility] Past Medical History Attestation statement: The following information was validated with the patient. Source: old records reviewed Medical History Menorrhagia PCOS (polycystic ovarian syndrome) Hyperthyroidism Social History Social History Alcohol intake: current Alcohol intake frequency: holidays/special occasions only Patient Tobacco Use Status: Never used Tobacco Advance Directives: No Advance Directives Information Provided: Yes Do you have a plan to hurt others: No Plan Physical Exam ED Vital Signs: Vital Signs - 24 hr 09/16/24 13:11 09/16/24 15:50 Temperature 97.7 F Pulse Rate 78 71 Respiratory Rate 16 16 Blood Pressure 134/95 H 139/88 Pulse Oximetry 100 100 Oxygen Delivery Method Room Air Room Air BMI result Body Mass Index 34.8 Appearance: Alert. Oriented X3. No acute distress. Eyes: Pupils equal, round and reactive to light. ENT: Pharynx normal. Neck: Normal inspection. Neck supple. CVS: Normal heart rate and rhythm. Pulses normal. Respiratory: No respiratory distress. Breath sounds normal. Abdomen: Soft and nontender. Skin: Skin warm and dry. Normal skin color. Normal skin turgor. Extremities: No lower extremity edema. No calf ttp Neuro: Oriented X 3. No motor deficit. No sensory deficit. CN2-12 intact Course Course Course Narrative: 09/16/24 1312 CRUZ May This is a Rapid Medical Examination (RME) performed by Deb Geller PA-C in triage. Full HPI, ROS, assessment and treatment plan per primary provider in the Main ED. Hx: 29 yo F hx hypothyroid here for eval of numbness/tingling to R arm, elevated BP and chest discomfort which began around 1 hour ago. also reoprts HERRERA and dizziness. symptoms began while at work. no increased stress/anxiety. PE/vitals: anxious appearing, tearful, AOX3, no slurred speech or facial droop, ambulating with steady gait. no neuro deficits. Plan: labs, ekg, trop, TSH +/- imaging Medical Decision Making Medical Decision Making [facility] Narrative: 29 yo female with PMH of PCOS and hyperthyroidism here with c/o near syncopal event feeling dizzy with elevated BPs but no CP/SOB to suggest ACS or VTE. Will obtain EKG, basic labs, she is NV intact and no neuro deficits. She will need labs and EKG, BP slightly high but not worrisome would have her follow up with PCP as outpatient. Differential Diagnosis Differential Diagnoses: The differential diagnosis associated with the presentation includes near syncope, anemia, dehydration, low prob VTE no CP/SOB and no signs of ACS with no known CAD Admission/Observation Consideration of admission/observation: Escalation of care including admission/observation considered work up negative stable for DC Lab Data [facility] Lab Attestation statement: I reviewed the patient's lab results. labs reassuring, trop flat x 2 09/16/24 13:43 09/16/24 13:43 Labs: Lab Results 09/16/24 09/16/24 Range/Units 13:43 14:47 WBC 6.9 (4.8-10.8) X10*3/uL RBC 3.94 L (4.20-5.50) X10*6/uL Hgb 12.7 (12.0-16.0) g/dl Hct 36.9 L (37.0-47.0) % MCV 93.7 (80.0-98.0) fL MCH 32.2 (27.0-33.0) pg MCHC 34.4 (31.0-35.0) g/dl RDW 12.2 (11.0-16.0) % Plt Count 265 (160-400) X10*3/uL MPV 10.6 (9.4-12.3) fL Immature Gran % (Auto) 0.3 (0.0-0.4) % Neut % (Auto) 65.5 (45-73) % Lymph % (Auto) 23.0 (20-40) % [place] % (Auto) 5.6 (2-11) % Eos % (Auto) 5.2 H (0-4) % Baso % (Auto) 0.4 (0-2) % Lymph # (Auto) 1.6 (1.2-4.9) X10*3/uL [place] # (Auto) 0.4 (0.1-1.2) X10*3/uL Eos # (Auto) 0.4 (0.0-0.4) X10*3/uL Baso # (Auto) 0.0 (0.0-0.2) X10*3/uL Abs Immat Gran (auto) 0.02 (0.00-0.03) X10*3/uL Absolute Neuts (auto) 4.5 (2.0-8.3) x10*3/uL Absolute Nucleated RBC 0.000 (0.0-0.012) X10*3/uL Nucleated RBC % (auto) 0.0 (0.0-0.2) /100WBC Sodium 138 (135-145) mmol/L Potassium 3.8 (3.3-5.1) mmol/L Chloride 105 (96-108) mmol/L Carbon Dioxide 24 (22-29) mmol/L Anion Gap 13 (12-20) BUN 13 (9-16) mg/dL Creatinine 0.58 (0.5-1.4) mg/dL Estim Creat Clear Calc 148.5 Estimated GFR > 60 Random Glucose 76 (60-115) mg/dL Calcium 9.2 (8.4-10.2) mg/dL Magnesium 1.8 (1.6-2.6) mg/dL Total Bilirubin 0.5 (0.0-1.0) mg/dL AST 25 (5-31) U/L ALT 24 (0-31) U/L Alkaline Phosphatase 54 (39-117) U/L Troponin I High Sens < 2.7 < 2.7 (<3.5-17.0) ng/L Total Protein 7.2 (6.5-8.0) g/dL Albumin 4.2 (3.5-5.0) g/dL TSH 0.17 L (0.32-4.0) uIU/mL Free T4 1.56 (0.71-1.85) ng/dL Independent Interpretation I performed an independent interpretation of an: EKG Interpretation: Rate: 60 Rhythm: NSR with sinus arrhythmia [place]: normal Normal P waves. Normal CHACHA. Normal QRS complex. ST T wave : no FROYLAN, inverted t wave V1, nonspecific ST T wave changes lateral leads qTC: 418 prior studies: no acute ischemia The study has been interpreted contemporaneously by me. . External Record Review External record reviewed: Outpatient record Discharge Plan Discharge Clinical Impression: Near syncope, Arm paresthesia, right Patient Disposition: Home, Self-Care Instructions: Paresthesia (ED), Near Syncope (ED) Additional Instructions: labs reassuring two heart tests normal TSH 0.17 but T4 1.56 - recheck hormone level in 2 weeks repeat blood pressure check as well next week rest and stay hydrated drink plenty of fluids at least 60 ounces a day Prescriptions: No Action tranexamic acid 650 mg tablet 650 mg PO TID 5 Days Qty: 15 0RF Rx Instructions: Take medication for 3 days. If bleeding continues, continue medication up to 5 days Stand Alone Forms: Work/School Release Print Language: Tanzanian
--- NOTE | 2024-09-16 13:15 | ECG_ITS ---
Test Reason : DIZZINESS Blood Pressure : */* mmHG Vent. Rate : 60 BPM Atrial Rate : 60 BPM P-R Int : 126 ms QRS Dur : 74 ms QT Int : 418 ms P-R-T Axes : 26 32 3 degrees QTcB Int : 418 ms Sinus rhythm with marked sinus arrhythmia Otherwise normal ECG When compared with ECG of 23-Sep-2023 13:33, No significant change was found Referred By: Denice Geller Electronically Signed By: SARAN CONTRERAS MD
[2024-09-16 13:47] LABS: MANUAL DIFF FLAG NO
[2024-09-16 13:52] LABS: Basophils Percent Auto 0.4 % (0-2); Eosinophils Absolute Auto 0.4 X10*3/uL (0.0-0.4); Eosinophils Percent Auto 5.2 % (0-4); Hematocrit 36.9 % (37.0-47.0); Hemoglobin 12.7 g/dl (12.0-16.0); Imm Gran Abs Auto 0.02 X10*3/uL (0.00-0.03); Imm Gran Pct Auto 0.3 % (0.0-0.4); Lymphocytes Absolute Auto 1.6 X10*3/uL (1.2-4.9); Mean Corpuscular HGB Conc 34.4 g/dl (31.0-35.0); Mean Corpuscular Hemoglobin 32.2 pg (27.0-33.0); Mean Corpuscular Volume 93.7 fL (80.0-98.0); Mean Platelet Volume 10.6 fL (9.4-12.3); Monocytes Absolute Auto 0.4 X10*3/uL (0.1-1.2); Monocytes Percent Auto 5.6 % (2-11); Neutrophils Absolute Auto 4.5 x10*3/uL (2.0-8.3); Neutrophils Percent Auto 65.5 % (45-73); Platelet Count 265 X10*3/uL (160-400); Red Blood Count 3.94 X10*6/uL (4.20-5.50); Red Cell Distribution Width 12.2 % (11.0-16.0); White Blood Count 6.9 X10*3/uL (4.8-10.8)
[2024-09-16 14:08] LABS: Alanine Aminotransferase 24 U/L (0-31); Albumin Level 4.2 g/dL (3.5-5.0); Alkaline Phosphatase 54 U/L (39-117); Anion Gap 13 (12-20); Aspartate Amino Transferase 25 U/L (5-31); Bilirubin Total 0.5 mg/dL (0.0-1.0); Blood Urea Nitrogen 13 mg/dL (9-16); Calcium 9.2 mg/dL (8.4-10.2); Carbon Dioxide 24 mmol/L (22-29); Chloride 105 mmol/L (96-108); Creatinine Clr Calc Pharmacy 148.5; Estimated Glomerular Filt Rate > 60; Glucose Random 76 mg/dL (60-115); Magnesium 1.8 mg/dL (1.6-2.6); Potassium 3.8 mmol/L (3.3-5.1); Sodium 138 mmol/L (135-145); Total Protein 7.2 g/dL (6.5-8.0)
[2024-09-16 14:13] LABS: Troponin-I High Sensitivity < 2.7 ng/L (<3.5-17.0)
[2024-09-16 14:25] LABS: TSH reflex Free T4 0.17 uIU/mL (0.32-4.0)
[2024-09-16 14:59] LABS: Free T4 (Free Thyroxine) 1.56 ng/dL (0.71-1.85)
[2024-09-16 15:23] LABS: Troponin-I High Sensitivity < 2.7 ng/L (<3.5-17.0)
[2024-09-16 15:50] VITALS: BP 139/88; PULSE 71; RESP 16; O2SAT 100
[2024-09-16 16:06] VITALS: BP 139/88; PULSE 71; RESP 16; TEMP 36.7; O2SAT 100
--- OUTSIDE RECORDS SUMMARY | 2024-09-16 16:13 | XMS_ITS | Patient Health Record ---
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 Name Role Phone JULIO BYRNES Unavailable [phone] Allergies Allergen (clinical drug ingredient) Drug/Non Drug Allergy documented on EMR Reaction Allergy Type Onset Date Status baclofen Baclofen hives Drug Allergy Active Latex Latex rash Allergy Active Results Component Value Reference Range Notes URINALYSIS WITH REFLEX MICRO SCOPIC Reviewed date:07/16/2024 04:44:01 PM Interpretation: Performing Lab: Notes/Report: Specific [place] Urine 1.018 1.003-1.030 pH, Urine 5.5 5.0-8.0 pH Leukocytes, Urine Negative Negative Nitrite, Urine Negative Negative Protein, Urine Negative <=Trace mg/dL Glucose, Urine Negative Negative mg/dL Ketones, Urine Negative Negative mg/dL Urobilinogen, Urine 0.2 0.2-1.0 mg/dL Bilirubin, Urine Negative Negative Blood, Urine Large Negative RBC, Urine 281.5 0-4 /HPF WBC, Urine 2.3 0-4 /HPF Squamous Epithelial, Urine 31 0-60 /LPF Bacteria, Urine Negative Negative /HPF Hyaline Casts, Urine 2.4 0-3 /LPF THYROID STIMULATING HORMONE WITH REFLEX TO FREE T4 AND FREE T3 Reviewed date:07/17/2024 07:59:54 AM Interpretation: Performing Lab: Notes/Report: TSH 1.52 0.40-4.00 mcIU/mL COMPREHENSIVE METABOLIC PANE L Reviewed date:07/17/2024 08:01:05 AM Interpretation: Performing Lab: Notes/Report: Sodium 141 133-145 mmol/L Potassium 3.9 3.5-5.5 mmol/L Chloride 106 96-110 mmol/L CO2 28 21-32 mmol/L Anion Gap 7 3-11 Glucose 79 70-100 mg/dL BUN 8 5-25 mg/dL Creatinine 0.65 0.50-1.10 mg/dL eGFR 124 >=60 mL/min/1.73m2 Calculati on based on the?Chronic Kidney Disease Epidemiology Collaboration (CKD-EPI) equation refit?without adjustment for race. BUN/Creatinine Ratio 12.3 Calcium 9.7 8.5-10.5 mg/dL AST (SGOT) 37 10-42 unit/L ALT (SGPT) 60 10-60 unit/L Alkaline Phosphatase 78 42-121 unit/L Total Protein 7.4 6.0-8.0 g/dL Albumin 4.2 3.2-5.0 g/dL Total Bilirubin 0.5 0.0-1.4 mg/dL VITAMIN D 25 HYDROXY Reviewed date:07/17/2024 12:42:48 PM Interpretation: Performing Lab: Notes/Report: Vit D, 25-Hydroxy 18.3 30.0-80.0 ng/mL LIPID PANEL WITH REFLEX TO D IRECT LDL Reviewed date:07/17/2024 08:01:10 AM Interpretation: Performing Lab: Notes/Report: Cholesterol 174 0-200 mg/dL Triglycerides 121 0-150 mg/dL HDL 38 >=40 mg/dL LDL Calculated 112 0-100 mg/dL VLDL Cholesterol [place] 24.2 Non HDL Chol. (LDL+VLDL) 136 <145 mg/dL Chol/HDL Ratio 4.6 0.0-4.4 CBC WITH AUTO DIFFERENTIAL Reviewed date:07/16/2024 04:44:05 PM Interpretation: Performing Lab: Notes/Report: WBC 6.2 4.8-10.8 K/mcL RBC 3.60 3.80-4.80 M/mcL Hemoglobin 11.6 11.5-16.0 g/dL Hematocrit 34.6 35.0-47.0 % MCV 96.4 79.0-98.0 FL MCH 32.3 27.0-32.0 pcg MCHC 33.5 32.0-37.0 g/dL RDW 12.2 11.0-15.0 % Platelets 279 130-400 K/mcL MPV 11.3 7.0-11.0 FL NRBC 0.0 <1.0 % NRBC Absolute 0.00 <0.10 K/mcL Neutrophils Relative 59.7 Lymphocytes Relative 30.0 Monocytes Relative 6.3 Eosinophils Relative 3.2 Basophils Relative 0.5 Immature Granulocytes Relative 0.3 Neutrophils Absolute 3.67 1.50-7.00 K/mcL Lymphocytes Absolute 1.85 1.00-5.00 K/mcL Monocytes Absolute 0.39 0.20-1.00 K/mcL Eosinophils Absolute 0.20 0.00-0.50 K/mcL Basophils Absolute 0.03 0.00-0.20 K/mcL Immature Granulocytes Absolute 0.02 0.00-0.03 K/mcL Reason For Referral Reason NEUROLOGY SYNCOPE Diagnosis 1 Syncope and collapse (R55) Referral Organization [facility] [address] Referring Provider First Name JULIO Referring Provider Last Name SONIYA [facility] Referred Provider Azar Unger Referred Provider Specialty Neurology General Notes Kami Perez 04:09:58 PM > Pt given phone [phone] and referral faxed to [phone] Referral Priority Routine Reason PVC- Echo Diagnosis 1 Syncope and collapse (R55) Referral Organization [facility] [address] Referring Provider First Name JULIO Referring Provider Last Name SONIYA Referring Provider [facility] Referred Provider Specialty Cardiology General Notes Kami Perez 03:49:00 PM > referral form faxed to [facility] [phone] Referral Priority Routine Diagnosis 1 Seizures (R56.9) Referral Organization [facility] [address] Referring Provider First Name JULIO Referring Provider Last Name SONIYA Referring Provider [facility] Referred Provider LEDY ESTRADA Referred Provider Specialty Neurology General Notes [address], [place] [address] [place] [id number], , Referral Priority Routine Medications Medication SIG (Take, Route, Frequency, Duration) Notes Start Date End Date Status medroxyPROGESTERone Acetate 10 MG TAKE 1 TABLET BY MOUTH DAILY FOR 10 DAYS. Oral for 10 Days Not-Taking Fenofibrate 54 MG TAKE 1 TABLET (54 MG) BY MOUTH DAILY Oral for 90 Days Active Apri 0.15-30 MG-MCG ONE TABLET DAILY SKIP PLACEBO PILLS AND TAKE ACTIVE PILLS ONLY UNTIL PROCEDURE DATE Oral for 63 Days Active Ferrous Sulfate 325 (65 Fe) MG TAKE 2 TABLETS BY MOUTH EVERY OTHER DAY. Oral for 30 Days Active Levothyroxine Sodium 100 MCG Oral for 90 Days Active Problems Problem Type SNOMED Code ICD Code Onset Dates Problem Status W/U Status Risk Notes Problem 651499657 Mixed hyperlipidemia (E78.2) Active confirmed Problem Syncope and collapse (256139359) Syncope and collapse (R55) Active confirmed Problem Lipid screening (674086436) Encounter for screening for lipoid disorders (Z13.220) Active confirmed Problem 853401424 Acquired hypothyroidism (E03.9) Active confirmed Problem Adult health examination (740241703) Adult general medical exam (Z00.00) Active confirmed Problem 741836584 Obesity (BMI 30-39.9) (E66.9) Active confirmed Problem 852855975 PCOS (polycystic ovarian syndrome) (E28.2) Active confirmed Problem Avitaminosis D (78566812) Avitaminosis D (E55.9) Active confirmed Problem Endocrine/[place] lic screening (844838501) Encounter for screening for endocrine disorder (Z13.29) Active confirmed Problem 0181111 Infertility, female (N97.9) Active confirmed Vital Signs Heart Rate 102 /min 08/11/2024 Blood pressure diastolic 76 mm Hg 08/11/2024 Oximetry 99 % 08/11/2024 Height 62 in 08/11/2024 Blood pressure systolic 118 mm Hg 08/11/2024 Weight 191 lbs 08/11/2024 BMI 34.93 kg/m2 08/11/2024 Encounters Encounter Location Date Provider Diagnosis [facility] [address] [address] 07/13/2024 JULIO BYRNES Mixed hyperlipidemia E78.2 ; PCOS (polycystic ovarian syndrome) E28.2 ; Acquired hypothyroidism E03.9 ; Syncope and collapse R55 ; Premature contractions, supraventricular I49.1 and Obesity (BMI 30-39.9) E66.9 [facility] [address] [address] 08/11/2024 JULIO BYRNES Annual physical exam Z00.00 ; Syncope and collapse R55 ; Mixed hyperlipidemia E78.2 ; PCOS (polycystic ovarian syndrome) E28.2 ; Acquired hypothyroidism E03.9 ; Premature contractions, supraventricular I49.1 ; Infertility, female N97.9 ; Obesity (BMI 30-39.9) E66.9 ; Depression screening Z13.31 and Screening for substance abuse Z13.89 [facility] [address] [place] [address] 07/16/2024 JULIO BYRNES [facility] [address] [place] [address] 07/17/2024 JULIO BYRNES [facility] [address] [place] [address] 08/12/2024 JULIO BYRNES [facility] [address] [place] [address] 08/24/2024 JULIO BYRNES Assessments Encounter Date Diagnosis (ICD Code) Assessment Notes Treatment Notes Treatment Clinical Notes Section Notes 07/13/2024 Mixed hyperlipidemia (ICD-10 - E78.2) Nava is a 29-year-old female who presents to the office today for new patient evaluation. Patient is welcomed to the practice. They are coming from [place]. Last complete physical exam with labs 1 year ago. Medications, medical history, allergies, surgeries, hospitalizations, family history, and social history were reviewed. Problem list updated. Cardiopulmonary and abdominal exam unremarkable. Patient will follow-up in office. All patient questions answered at this time. # Hyperlipidemia: Updated lipid panel pending. Continue fenofibrate 54 mg once daily. Discussed importance of diet and lifestyle to lower cholesterol levels prevent other comorbidities. Will continue to monitor. # PCOS: Continue ferrous sulfate 65 mg 2 tablets every other day, patient takes supplement due to heavy menstrual cycles to avoid iron deficiency. Recently also was on medroxyprogesterone acetate 10 mg for 10 days. Has finished this course. Continue follow-up with gynecology, patient also follows up with fertility specialist with goal to conceive. Will continue to monitor. # Hypothyroidism: Updated TSH pending, continue levothyroxine 100 mcg once daily in the morning before medications before food. Will continue to monitor. # Syncope: Patient presented to [facility] ED on 07/12/2024 for potential syncope versus seizure. Patient was on a flight home from [place], approximately 2 and half hours into flight began feeling hot and dizzy, went to use the bathroom and felt faint and collapsed. No head strike. Per ER report, no postictal state, however patient states reporting feeling confused and dizzy after event. No tongue biting or incontinence. Reportedly no convulsions however patient states that her arms did contract inward. Patient states that as a child that she reports a weeklong history of seizures of unknown etiology. CBC in the ED significant only for MCH 32.5, MPV 11.2. Normal hemoglobin and hematocrit. Basic metabolic panel within normal limits, magnesium 1.9. Chest x-ray within normal limits. EKG significant for sinus bradycardia with premature supraventricular complexes, no ST elevation depressions, no acute ischemic changes compared to previous study on 04/20/2014. Due to history of seizure activity in the past will refer to neurology for further workup. Will continue to follow. # Obesity: Weight 192 pounds, BMI 35.11. Discussed importance of lifestyle and diet for maintaining healthy weight and preventing other comorbidities. Will continue to monitor at subsequent visit. All questions have been answered to patient's satisfaction. Patient verbalized understanding of diagnosis and treatments explained. Advised to call sooner prior to next visit it any questions/concerns arise. Case discussed with collaborating physician Esteban Villa who reviewed the assessment and plan. Chart, medications, labs, vital signs reviewed. Dictation was accomplished with the use of Flythegap voice recognition software, which is prone to medical misidentifications and grammatical errors. This are unintentional and the practitioner does try to identify and correct these, but some could still be present. Please do not hesitate to contact practitioner for clarification. 07/13/2024 PCOS (polycystic ovarian syndrome) (ICD-10 - E28.2) Nava is a 29-year-old female who presents to the office today for new patient evaluation. Patient is welcomed to the practice. They are coming from [place]. Last complete physical exam with labs 1 year ago. Medications, medical history, allergies, surgeries, hospitalizations, family history, and social history were reviewed. Problem list updated. Cardiopulmonary and abdominal exam unremarkable. Patient will follow-up in office. All patient questions answered at this time. # Hyperlipidemia: Updated lipid panel pending. Continue fenofibrate 54 mg once daily. Discussed importance of diet and lifestyle to lower cholesterol levels prevent other comorbidities. Will continue to monitor. # PCOS: Continue ferrous sulfate 65 mg 2 tablets every other day, patient takes supplement due to heavy menstrual cycles to avoid iron deficiency. Recently also was on medroxyprogesterone acetate 10 mg for 10 days. Has finished this course. Continue follow-up with gynecology, patient also follows up with fertility specialist with goal to conceive. Will continue to monitor. # Hypothyroidism: Updated TSH pending, continue levothyroxine 100 mcg once daily in the morning before medications before food. Will continue to monitor. # Syncope: Patient presented to [facility] ED on 07/12/2024 for potential syncope versus seizure. Patient was on a flight home from [place], approximately 2 and half hours into flight began feeling hot and dizzy, went to use the bathroom and felt faint and collapsed. No head strike. Per ER report, no postictal state, however patient states reporting feeling confused and dizzy after event. No tongue biting or incontinence. Reportedly no convulsions however patient states that her arms did contract inward. Patient states that as a child that she reports a weeklong history of seizures of unknown etiology. CBC in the ED significant only for MCH 32.5, MPV 11.2. Normal hemoglobin and hematocrit. Basic metabolic panel within normal limits, magnesium 1.9. Chest x-ray within normal limits. EKG significant for sinus bradycardia with premature supraventricular complexes, no ST elevation depressions, no acute ischemic changes compared to previous study on 04/20/2014. Due to history of seizure activity in the past will refer to neurology for further workup. Will continue to follow. # Obesity: Weight 192 pounds, BMI 35.11. Discussed importance of lifestyle and diet for maintaining healthy weight and preventing other comorbidities. Will continue to monitor at subsequent visit. All questions have been answered to patient's satisfaction. Patient verbalized understanding of diagnosis and treatments explained. Advised to call sooner prior to next visit it any questions/concerns arise. Case discussed with collaborating physician Esteban Villa who reviewed the assessment and plan. Chart, medications, labs, vital signs reviewed. Dictation was accomplished with the use of Fly[employer] voice recognition software, which is prone to medical misidentifications and grammatical errors. This are unintentional and the practitioner does try to identify and correct these, but some could still be present. Please do not hesitate to contact practitioner for clarification. 08/11/2024 Syncope and collapse (ICD-10 - R55) Patient seen and examined. Comprehensive discussion was done on the following. # Syncope: Patient presented to [facility] ED on 07/12/2024 for potential syncope versus seizure. Patient was on a flight home from [place], approximately 2 and half hours into flight began feeling hot and dizzy, went to use the bathroom and felt faint and collapsed. No head strike. Per ER report, no postictal state, however patient states reporting feeling confused and dizzy after event. No tongue biting or incontinence. Reportedly no convulsions however patient states that her arms did contract inward. Patient states that as a child that she reports a weeklong history of seizures of unknown etiology. CBC in the ED significant only for MCH 32.5, MPV 11.2. Normal hemoglobin and hematocrit. Basic metabolic panel within normal limits, magnesium 1.9. Chest x-ray within normal limits. EKG significant for sinus bradycardia with premature supraventricular complexes, no ST elevation depressions, no acute ischemic changes compared to previous study on 04/20/2014. Patient has been referred to neurology. Reports episode of syncope/seizure last week, loss of consciousness for approximately 1 minute. No associated convulsions. Will also obtain updated echocardiogram to screen for valvular abnormalities potentially contributing to symptoms. States having had a Holter monitor a few years ago with PVC. Will continue to follow. # Hypothyroidism: TSH on 07/16/2024 was 1.52. Continue levothyroxine 100 mcg once daily. Take medication on empty stomach before other medications. # Anemia: Secondary to PCOS with heavy menstrual cycles. Continue ferrous sulfate 65 mg 2 tablets every other day, patient takes supplement due to heavy menstrual cycles to avoid iron deficiency. Recently also was on medroxyprogesterone acetate 10 mg for 10 days.CBC on 07/16/2024 with findings of RBC count 3.60, hematocrit 34.6, MCH 32.3, MPV 11.3. Will continue to monitor. # Hyperlipidemia: Lipid panel on 07/16/2024 with HDL decreased at 38, LDL 112. Continue fenofibrate daily. Also discussed importance of omega-3 fatty acids as well as intake of fiber and vitamin D. Will continue to monitor, will follow-up in 6 months with repeat lipid panel. # Vitamin D insufficiency: Vitamin D level is decreased at 18.3. Patient has not been taking 50 mcg of vitamin D daily. Will continue to monitor. # Infertility: Patient follows with [facility] for advanced reproductive services in [place]. Is currently taking an oral contraceptive daily. Goal for conception, has been attempting to conceive for 2 years. Undergoing hysteroscopy next month for a uterine polyp removal. History of PCOS. Discussed that some weight loss can potentially increase chances of conception. Continue vitamins. Will continue to follow. # Obesity: Weight 191 lbs, BMI 34.93. Discussed importance of diet and lifestyle to maintain healthy weight. Will continue to monitor at subsequent visits. # Mild depression: In office PHQ-9 administered with score of 9. Patient reports good support from family and friends. Endorses symptoms related to trouble with infertility. Has been trying to conceive with her partner for the past 2 years. Also has concerns regarding her health problems and all the medications she is currently taking. Reports no SI or HI. Have offered support including counseling. Will continue to monitor mood at subsequent visits. 1. Nutrition: It is important to follow a healthy diet based on lots of vegetables and legumes and good fat. Avoid processed food and processed carbohydrates. Prepare your own meals. Read labels and avoid high fructose corn syrup, processed chemicals added to increase shelf life and preprepared meals. Avoid fast foods. Eat slowly and plan meals for a week. Try to count calories and be mindful off daily calorie intake. Get into the habit of keeping an eye on your weight by using an appropriate scale. Learn to log exercise and discussed fitness Apps like Akdemiapal or Cronometer which can help keep log off calories taken versus calories burned. Local food should be preferred. Discussed Dirty Dozen Versus Clean Fifteen. Discussed healthy supplements like fish oil, Tumeric, Curcumin, Melatonin, Resveratrol, Probiotics, Vitamin-D, Alpha-Lipoic acid, Vitamin-D and coconut oil. 2. It is important to exercise regularly. Is a good habit to walk at least 30 minutes a day. Gentle weightlifting with standard precautions to protect the back. Finding activity like cycling or hiking and get into the habit of engaging in it. Stretching before and after the exercises important. It is also important to contact me if there are any problems like shortness of breath, chest pain, back pain and joint or muscle pain associated with the exercise. 3. Discussed age appropriate screening guidelines. Colonoscopy needs to start at age 50 with stool for occult blood as appropriate. There is a new test that can test for genetic abnormalities in the stool sample, Cologuard. This would not replace a colonoscopy but could be used as a screening tool for patients who do not want a colonoscopy. We discussed the importance of early detection of colon cancer. 4. Discussed current guidelines with respect to breast examination, mammogram and pap smear for early detection of breast and cervical cancer. Patient advised to follow up with these appointments. 5. Discussed safe driving and no use of smart phone while driving 6. Age-appropriate immunizations were discussed. A tetanus booster is needed every 10 years. Flu vaccine is recommended every year just before the start of the flu season. Shingles vaccine is recommended after age 50 but not all insurances cover it. Pneumonia vaccine is given after age 65 unless there are certain comorbidities for which it is started earlier. 7. Diagnostic labs were discussed. These could include/not limited to CBC CMP and lipids with fasting blood glucose and insulin levels. Vitamin D and hemoglobin A1c testing might be appropriate. All questions have been answered to patient's satisfaction. Patient verbalized understanding of diagnosis and treatments explained. Advised to call sooner prior to next visit it any questions/concerns arise. Case discussed with collaborating physician Esteban Villa who reviewed the assessment and plan. Chart, medications, labs, vital signs reviewed. Dictation was accomplished with the use of Fly[employer]gap voice recognition software, which is prone to medical misidentifications and grammatical errors. This are unintentional and the practitioner does try to identify and correct these, but some could still be present. Please do not hesitate to contact practitioner for clarification. 08/11/2024 Annual physical exam (ICD-10 - Z00.00) Patient seen and examined. Comprehensive discussion was done on the following. # Syncope: Patient presented to [facility] ED on 07/12/2024 for potential syncope versus seizure. Patient was on a flight home from [place], approximately 2 and half hours into flight began feeling hot and dizzy, went to use the bathroom and felt faint and collapsed. No head strike. Per ER report, no postictal state, however patient states reporting feeling confused and dizzy after event. No tongue biting or incontinence. Reportedly no convulsions however patient states that her arms did contract inward. Patient states that as a child that she reports a weeklong history of seizures of unknown etiology. CBC in the ED significant only for MCH 32.5, MPV 11.2. Normal hemoglobin and hematocrit. Basic metabolic panel within normal limits, magnesium 1.9. Chest x-ray within normal limits. EKG significant for sinus bradycardia with premature supraventricular complexes, no ST elevation depressions, no acute ischemic changes compared to previous study on 04/20/2014. Patient has been referred to neurology. Reports episode of syncope/seizure last week, loss of consciousness for approximately 1 minute. No associated convulsions. Will also obtain updated echocardiogram to screen for valvular abnormalities potentially contributing to symptoms. States having had a Holter monitor a few years ago with PVC. Will continue to follow. # Hypothyroidism: TSH on 07/16/2024 was 1.52. Continue levothyroxine 100 mcg once daily. Take medication on empty stomach before other medications. # Anemia: Secondary to PCOS with heavy menstrual cycles. Continue ferrous sulfate 65 mg 2 tablets every other day, patient takes supplement due to heavy menstrual cycles to avoid iron deficiency. Recently also was on medroxyprogesterone acetate 10 mg for 10 days.CBC on 07/16/2024 with findings of RBC count 3.60, hematocrit 34.6, MCH 32.3, MPV 11.3. Will continue to monitor. # Hyperlipidemia: Lipid panel on 07/16/2024 with HDL decreased at 38, LDL 112. Continue fenofibrate daily. Also discussed importance of omega-3 fatty acids as well as intake of fiber and vitamin D. Will continue to monitor, will follow-up in 6 months with repeat lipid panel. # Vitamin D insufficiency: Vitamin D level is decreased at 18.3. Patient has not been taking 50 mcg of vitamin D daily. Will continue to monitor. # Infertility: Patient follows with [facility] for advanced reproductive services in [place]. Is currently taking an oral contraceptive daily. Goal for conception, has been attempting to conceive for 2 years. Undergoing hysteroscopy next month for a uterine polyp removal. History of PCOS. Discussed that some weight loss can potentially increase chances of conception. Continue vitamins. Will continue to follow. # Obesity: Weight 191 lbs, BMI 34.93. Discussed importance of diet and lifestyle to maintain healthy weight. Will continue to monitor at subsequent visits. # Mild depression: In office PHQ-9 administered with score of 9. Patient reports good support from family and friends. Endorses symptoms related to trouble with infertility. Has been trying to conceive with her partner for the past 2 years. Also has concerns regarding her health problems and all the medications she is currently taking. Reports no SI or HI. Have offered support including counseling. Will continue to monitor mood at subsequent visits. 1. Nutrition: It is important to follow a healthy diet based on lots of vegetables and legumes and good fat. Avoid processed food and processed carbohydrates. Prepare your own meals. Read labels and avoid high fructose corn syrup, processed chemicals added to increase shelf life and preprepared meals. Avoid fast foods. Eat slowly and plan meals for a week. Try to count calories and be mindful off daily calorie intake. Get into the habit of keeping an eye on your weight by using an appropriate scale. Learn to log exercise and discussed fitness Apps like [employer] or [employer] which can help keep log off calories taken versus calories burned. Local food should be preferred. Discussed Dirty Dozen Versus Clean Fifteen. Discussed healthy supplements like fish oil, Tumeric, Curcumin, Melatonin, Resveratrol, Probiotics, Vitamin-D, Alpha-Lipoic acid, Vitamin-D and coconut oil. 2. It is important to exercise regularly. Is a good habit to walk at least 30 minutes a day. Gentle weightlifting with standard precautions to protect the back. Finding activity like cycling or hiking and get into the habit of engaging in it. Stretching before and after the exercises important. It is also important to contact me if there are any problems like shortness of breath, chest pain, back pain and joint or muscle pain associated with the exercise. 3. Discussed age appropriate screening guidelines. Colonoscopy needs to start at age 50 with stool for occult blood as appropriate. There is a new test that can test for genetic abnormalities in the stool sample, Cologuard. This would not replace a colonoscopy but could be used as a screening tool for patients who do not want a colonoscopy. We discussed the importance of early detection of colon cancer. 4. Discussed current guidelines with respect to breast examination, mammogram and pap smear for early detection of breast and cervical cancer. Patient advised to follow up with these appointments. 5. Discussed safe driving and no use of smart phone while driving 6. Age-appropriate immunizations were discussed. A tetanus booster is needed every 10 years. Flu vaccine is recommended every year just before the start of the flu season. Shingles vaccine is recommended after age 50 but not all insurances cover it. Pneumonia vaccine is given after age 65 unless there are certain comorbidities for which it is started earlier. 7. Diagnostic labs were discussed. These could include/not limited to CBC CMP and lipids with fasting blood glucose and insulin levels. Vitamin D and hemoglobin A1c testing might be appropriate. All questions have been answered to patient's satisfaction. Patient verbalized understanding of diagnosis and treatments explained. Advised to call sooner prior to next visit it any questions/concerns arise. Case discussed with collaborating physician Esteban Villa who reviewed the assessment and plan. Chart, medications, labs, vital signs reviewed. Dictation was accomplished with the use of [employer] voice recognition software, which is prone to medical misidentifications and grammatical errors. This are unintentional and the practitioner does try to identify and correct these, but some could still be present. Please do not hesitate to contact practitioner for clarification. 08/11/2024 Mixed hyperlipidemia (ICD-10 - E78.2) Patient seen and examined. Comprehensive discussion was done on the following. # Syncope: Patient presented to [facility] ED on 07/12/2024 for potential syncope versus seizure. Patient was on a flight home from [place], approximately 2 and half hours into flight began feeling hot and dizzy, went to use the bathroom and felt faint and collapsed. No head strike. Per ER report, no postictal state, however patient states reporting feeling confused and dizzy after event. No tongue biting or incontinence. Reportedly no convulsions however patient states that her arms did contract inward. Patient states that as a child that she reports a weeklong history of seizures of unknown etiology. CBC in the ED significant only for MCH 32.5, MPV 11.2. Normal hemoglobin and hematocrit. Basic metabolic panel within normal limits, magnesium 1.9. Chest x-ray within normal limits. EKG significant for sinus bradycardia with premature supraventricular complexes, no ST elevation depressions, no acute ischemic changes compared to previous study on 04/20/2014. Patient has been referred to neurology. Reports episode of syncope/seizure last week, loss of consciousness for approximately 1 minute. No associated convulsions. Will also obtain updated echocardiogram to screen for valvular abnormalities potentially contributing to symptoms. States having had a Holter monitor a few years ago with PVC. Will continue to follow. # Hypothyroidism: TSH on 07/16/2024 was 1.52. Continue levothyroxine 100 mcg once daily. Take medication on empty stomach before other medications. # Anemia: Secondary to PCOS with heavy menstrual cycles. Continue ferrous sulfate 65 mg 2 tablets every other day, patient takes supplement due to heavy menstrual cycles to avoid iron deficiency. Recently also was on medroxyprogesterone acetate 10 mg for 10 days.CBC on 07/16/2024 with findings of RBC count 3.60, hematocrit 34.6, MCH 32.3, MPV 11.3. Will continue to monitor. # Hyperlipidemia: Lipid panel on 07/16/2024 with HDL decreased at 38, LDL 112. Continue fenofibrate daily. Also discussed importance of omega-3 fatty acids as well as intake of fiber and vitamin D. Will continue to monitor, will follow-up in 6 months with repeat lipid panel. # Vitamin D insufficiency: Vitamin D level is decreased at 18.3. Patient has not been taking 50 mcg of vitamin D daily. Will continue to monitor. # Infertility: Patient follows with [facility] for advanced reproductive services in [place]. Is currently taking an oral contraceptive daily. Goal for conception, has been attempting to conceive for 2 years. Undergoing hysteroscopy next month for a uterine polyp removal. History of PCOS. Discussed that some weight loss can potentially increase chances of conception. Continue vitamins. Will continue to follow. # Obesity: Weight 191 lbs, BMI 34.93. Discussed importance of diet and lifestyle to maintain healthy weight. Will continue to monitor at subsequent visits. # Mild depression: In office PHQ-9 administered with score of 9. Patient reports good support from family and friends. Endorses symptoms related to trouble with infertility. Has been trying to conceive with her partner for the past 2 years. Also has concerns regarding her health problems and all the medications she is currently taking. Reports no SI or HI. Have offered support including counseling. Will continue to monitor mood at subsequent visits. 1. Nutrition: It is important to follow a healthy diet based on lots of vegetables and legumes and good fat. Avoid processed food and processed carbohydrates. Prepare your own meals. Read labels and avoid high fructose corn syrup, processed chemicals added to increase shelf life and preprepared meals. Avoid fast foods. Eat slowly and plan meals for a week. Try to count calories and be mindful off daily calorie intake. Get into the habit of keeping an eye on your weight by using an appropriate scale. Learn to log exercise and discussed fitness Apps like [employer] or [employer] which can help keep log off calories taken versus calories burned. Local food should be preferred. Discussed Dirty Dozen Versus Clean Fifteen. Discussed healthy supplements like fish oil, Tumeric, Curcumin, Melatonin, Resveratrol, Probiotics, Vitamin-D, Alpha-Lipoic acid, Vitamin-D and coconut oil. 2. It is important to exercise regularly. Is a good habit to walk at least 30 minutes a day. Gentle weightlifting with standard precautions to protect the back. Finding activity like cycling or hiking and get into the habit of engaging in it. Stretching before and after the exercises important. It is also important to contact me if there are any problems like shortness of breath, chest pain, back pain and joint or muscle pain associated with the exercise. 3. Discussed age appropriate screening guidelines. Colonoscopy needs to start at age 50 with stool for occult blood as appropriate. There is a new test that can test for genetic abnormalities in the stool sample, Cologuard. This would not replace a colonoscopy but could be used as a screening tool for patients who do not want a colonoscopy. We discussed the importance of early detection of colon cancer. 4. Discussed current guidelines with respect to breast examination, mammogram and pap smear for early detection of breast and cervical cancer. Patient advised to follow up with these appointments. 5. Discussed safe driving and no use of smart phone while driving 6. Age-appropriate immunizations were discussed. A tetanus booster is needed every 10 years. Flu vaccine is recommended every year just before the start of the flu season. Shingles vaccine is recommended after age 50 but not all insurances cover it. Pneumonia vaccine is given after age 65 unless there are certain comorbidities for which it is started earlier. 7. Diagnostic labs were discussed. These could include/not limited to CBC CMP and lipids with fasting blood glucose and insulin levels. Vitamin D and hemoglobin A1c testing might be appropriate. All questions have been answered to patient's satisfaction. Patient verbalized understanding of diagnosis and treatments explained. Advised to call sooner prior to next visit it any questions/concerns arise. Case discussed with collaborating physician Esteban Villa who reviewed the assessment and plan. Chart, medications, labs, vital signs reviewed. Dictation was accomplished with the use of [employer] voice recognition software, which is prone to medical misidentifications and grammatical errors. This are unintentional and the practitioner does try to identify and correct these, but some could still be present. Please do not hesitate to contact practitioner for clarification. 07/13/2024 Acquired hypothyroidism (ICD-10 - E03.9) Nava is a 29-year-old female who presents to the office today for new patient evaluation. Patient is welcomed to the practice. They are coming from [place]. Last complete physical exam with labs 1 year ago. Medications, medical history, allergies, surgeries, hospitalizations, family history, and social history were reviewed. Problem list updated. Cardiopulmonary and abdominal exam unremarkable. Patient will follow-up in office. All patient questions answered at this time. # Hyperlipidemia: Updated lipid panel pending. Continue fenofibrate 54 mg once daily. Discussed importance of diet and lifestyle to lower cholesterol levels prevent other comorbidities. Will continue to monitor. # PCOS: Continue ferrous sulfate 65 mg 2 tablets every other day, patient takes supplement due to heavy menstrual cycles to avoid iron deficiency. Recently also was on medroxyprogesterone acetate 10 mg for 10 days. Has finished this course. Continue follow-up with gynecology, patient also follows up with fertility specialist with goal to conceive. Will continue to monitor. # Hypothyroidism: Updated TSH pending, continue levothyroxine 100 mcg once daily in the morning before medications before food. Will continue to monitor. # Syncope: Patient presented to [facility] ED on 07/12/2024 for potential syncope versus seizure. Patient was on a flight home from [place], approximately 2 and half hours into flight began feeling hot and dizzy, went to use the bathroom and felt faint and collapsed. No head strike. Per ER report, no postictal state, however patient states reporting feeling confused and dizzy after event. No tongue biting or incontinence. Reportedly no convulsions however patient states that her arms did contract inward. Patient states that as a child that she reports a weeklong history of seizures of unknown etiology. CBC in the ED significant only for MCH 32.5, MPV 11.2. Normal hemoglobin and hematocrit. Basic metabolic panel within normal limits, magnesium 1.9. Chest x-ray within normal limits. EKG significant for sinus bradycardia with premature supraventricular complexes, no ST elevation depressions, no acute ischemic changes compared to previous study on 04/20/2014. Due to history of seizure activity in the past will refer to neurology for further workup. Will continue to follow. # Obesity: Weight 192 pounds, BMI 35.11. Discussed importance of lifestyle and diet for maintaining healthy weight and preventing other comorbidities. Will continue to monitor at subsequent visit. All questions have been answered to patient's satisfaction. Patient verbalized understanding of diagnosis and treatments explained. Advised to call sooner prior to next visit it any questions/concerns arise. Case discussed with collaborating physician Esteban Villa who reviewed the assessment and plan. Chart, medications, labs, vital signs reviewed. Dictation was accomplished with the use of [employer] voice recognition software, which is prone to medical misidentifications and grammatical errors. This are unintentional and the practitioner does try to identify and correct these, but some could still be present. Please do not hesitate to contact practitioner for clarification. 07/13/2024 Syncope and collapse (ICD-10 - R55) Nava is a 29-year-old female who presents to the office today for new patient evaluation. Patient is welcomed to the practice. They are coming from [place]. Last complete physical exam with labs 1 year ago. Medications, medical history, allergies, surgeries, hospitalizations, family history, and social history were reviewed. Problem list updated. Cardiopulmonary and abdominal exam unremarkable. Patient will follow-up in office. All patient questions answered at this time. # Hyperlipidemia: Updated lipid panel pending. Continue fenofibrate 54 mg once daily. Discussed importance of diet and lifestyle to lower cholesterol levels prevent other comorbidities. Will continue to monitor. # PCOS: Continue ferrous sulfate 65 mg 2 tablets every other day, patient takes supplement due to heavy menstrual cycles to avoid iron deficiency. Recently also was on medroxyprogesterone acetate 10 mg for 10 days. Has finished this course. Continue follow-up with gynecology, patient also follows up with fertility specialist with goal to conceive. Will continue to monitor. # Hypothyroidism: Updated TSH pending, continue levothyroxine 100 mcg once daily in the morning before medications before food. Will continue to monitor. # Syncope: Patient presented to [facility] ED on 07/12/2024 for potential syncope versus seizure. Patient was on a flight home from [place], approximately 2 and half hours into flight began feeling hot and dizzy, went to use the bathroom and felt faint and collapsed. No head strike. Per ER report, no postictal state, however patient states reporting feeling confused and dizzy after event. No tongue biting or incontinence. Reportedly no convulsions however patient states that her arms did contract inward. Patient states that as a child that she reports a weeklong history of seizures of unknown etiology. CBC in the ED significant only for MCH 32.5, MPV 11.2. Normal hemoglobin and hematocrit. Basic metabolic panel within normal limits, magnesium 1.9. Chest x-ray within normal limits. EKG significant for sinus bradycardia with premature supraventricular complexes, no ST elevation depressions, no acute ischemic changes compared to previous study on 04/20/2014. Due to history of seizure activity in the past will refer to neurology for further workup. Will continue to follow. # Obesity: Weight 192 pounds, BMI 35.11. Discussed importance of lifestyle and diet for maintaining healthy weight and preventing other comorbidities. Will continue to monitor at subsequent visit. All questions have been answered to patient's satisfaction. Patient verbalized understanding of diagnosis and treatments explained. Advised to call sooner prior to next visit it any questions/concerns arise. Case discussed with collaborating physician Esteban Villa who reviewed the assessment and plan. Chart, medications, labs, vital signs reviewed. Dictation was accomplished with the use of [employer] voice recognition software, which is prone to medical misidentifications and grammatical errors. This are unintentional and the practitioner does try to identify and correct these, but some could still be present. Please do not hesitate to contact practitioner for clarification. 08/11/2024 PCOS (polycystic ovarian syndrome) (ICD-10 - E28.2) Patient seen and examined. Comprehensive discussion was done on the following. # Syncope: Patient presented to [facility] ED on 07/12/2024 for potential syncope versus seizure. Patient was on a flight home from [place], approximately 2 and half hours into flight began feeling hot and dizzy, went to use the bathroom and felt faint and collapsed. No head strike. Per ER report, no postictal state, however patient states reporting feeling confused and dizzy after event. No tongue biting or incontinence. Reportedly no convulsions however patient states that her arms did contract inward. Patient states that as a child that she reports a weeklong history of seizures of unknown etiology. CBC in the ED significant only for MCH 32.5, MPV 11.2. Normal hemoglobin and hematocrit. Basic metabolic panel within normal limits, magnesium 1.9. Chest x-ray within normal limits. EKG significant for sinus bradycardia with premature supraventricular complexes, no ST elevation depressions, no acute ischemic changes compared to previous study on 04/20/2014. Patient has been referred to neurology. Reports episode of syncope/seizure last week, loss of consciousness for approximately 1 minute. No associated convulsions. Will also obtain updated echocardiogram to screen for valvular abnormalities potentially contributing to symptoms. States having had a Holter monitor a few years ago with PVC. Will continue to follow. # Hypothyroidism: TSH on 07/16/2024 was 1.52. Continue levothyroxine 100 mcg once daily. Take medication on empty stomach before other medications. # Anemia: Secondary to PCOS with heavy menstrual cycles. Continue ferrous sulfate 65 mg 2 tablets every other day, patient takes supplement due to heavy menstrual cycles to avoid iron deficiency. Recently also was on medroxyprogesterone acetate 10 mg for 10 days.CBC on 07/16/2024 with findings of RBC count 3.60, hematocrit 34.6, MCH 32.3, MPV 11.3. Will continue to monitor. # Hyperlipidemia: Lipid panel on 07/16/2024 with HDL decreased at 38, LDL 112. Continue fenofibrate daily. Also discussed importance of omega-3 fatty acids as well as intake of fiber and vitamin D. Will continue to monitor, will follow-up in 6 months with repeat lipid panel. # Vitamin D insufficiency: Vitamin D level is decreased at 18.3. Patient has not been taking 50 mcg of vitamin D daily. Will continue to monitor. # Infertility: Patient follows with [facility] for advanced reproductive services in [place]. Is currently taking an oral contraceptive daily. Goal for conception, has been attempting to conceive for 2 years. Undergoing hysteroscopy next month for a uterine polyp removal. History of PCOS. Discussed that some weight loss can potentially increase chances of conception. Continue vitamins. Will continue to follow. # Obesity: Weight 191 lbs, BMI 34.93. Discussed importance of diet and lifestyle to maintain healthy weight. Will continue to monitor at subsequent visits. # Mild depression: In office PHQ-9 administered with score of 9. Patient reports good support from family and friends. Endorses symptoms related to trouble with infertility. Has been trying to conceive with her partner for the past 2 years. Also has concerns regarding her health problems and all the medications she is currently taking. Reports no SI or HI. Have offered support including counseling. Will continue to monitor mood at subsequent visits. 1. Nutrition: It is important to follow a healthy diet based on lots of vegetables and legumes and good fat. Avoid processed food and processed carbohydrates. Prepare your own meals. Read labels and avoid high fructose corn syrup, processed chemicals added to increase shelf life and preprepared meals. Avoid fast foods. Eat slowly and plan meals for a week. Try to count calories and be mindful off daily calorie intake. Get into the habit of keeping an eye on your weight by using an appropriate scale. Learn to log exercise and discussed fitness Apps like [employer] or [employer] which can help keep log off calories taken versus calories burned. Local food should be preferred. Discussed Dirty [employer]zen Versus [employer]teen. Discussed healthy supplements like fish oil, Tumeric, Curcumin, Melatonin, Resveratrol, Probiotics, Vitamin-D, Alpha-Lipoic acid, Vitamin-D and coconut oil. 2. It is important to exercise regularly. Is a good habit to walk at least 30 minutes a day. Gentle weightlifting with standard precautions to protect the back. Finding activity like cycling or hiking and get into the habit of engaging in it. Stretching before and after the exercises important. It is also important to contact me if there are any problems like shortness of breath, chest pain, back pain and joint or muscle pain associated with the exercise. 3. Discussed age appropriate screening guidelines. Colonoscopy needs to start at age 50 with stool for occult blood as appropriate. There is a new test that can test for genetic abnormalities in the stool sample, Cologuard. This would not replace a colonoscopy but could be used as a screening tool for patients who do not want a colonoscopy. We discussed the importance of early detection of colon cancer. 4. Discussed current guidelines with respect to breast examination, mammogram and pap smear for early detection of breast and cervical cancer. Patient advised to follow up with these appointments. 5. Discussed safe driving and no use of smart phone while driving 6. Age-appropriate immunizations were discussed. A tetanus booster is needed every 10 years. Flu vaccine is recommended every year just before the start of the flu season. Shingles vaccine is recommended after age 50 but not all insurances cover it. Pneumonia vaccine is given after age 65 unless there are certain comorbidities for which it is started earlier. 7. Diagnostic labs were discussed. These could include/not limited to CBC CMP and lipids with fasting blood glucose and insulin levels. Vitamin D and hemoglobin A1c testing might be appropriate. All questions have been answered to patient's satisfaction. Patient verbalized understanding of diagnosis and treatments explained. Advised to call sooner prior to next visit it any questions/concerns arise. Case discussed with collaborating physician Esteban Villa who reviewed the assessment and plan. Chart, medications, labs, vital signs reviewed. Dictation was accomplished with the use of [employer] voice recognition software, which is prone to medical misidentifications and grammatical errors. This are unintentional and the practitioner does try to identify and correct these, but some could still be present. Please do not hesitate to contact practitioner for clarification. 08/11/2024 Acquired hypothyroidism (ICD-10 - E03.9) Patient seen and examined. Comprehensive discussion was done on the following. # Syncope: Patient presented to [facility] ED on 07/12/2024 for potential syncope versus seizure. Patient was on a flight home from [place], approximately 2 and half hours into flight began feeling hot and dizzy, went to use the bathroom and felt faint and collapsed. No head strike. Per ER report, no postictal state, however patient states reporting feeling confused and dizzy after event. No tongue biting or incontinence. Reportedly no convulsions however patient states that her arms did contract inward. Patient states that as a child that she reports a weeklong history of seizures of unknown etiology. CBC in the ED significant only for MCH 32.5, MPV 11.2. Normal hemoglobin and hematocrit. Basic metabolic panel within normal limits, magnesium 1.9. Chest x-ray within normal limits. EKG significant for sinus bradycardia with premature supraventricular complexes, no ST elevation depressions, no acute ischemic changes compared to previous study on 04/20/2014. Patient has been referred to neurology. Reports episode of syncope/seizure last week, loss of consciousness for approximately 1 minute. No associated convulsions. Will also obtain updated echocardiogram to screen for valvular abnormalities potentially contributing to symptoms. States having had a Holter monitor a few years ago with PVC. Will continue to follow. # Hypothyroidism: TSH on 07/16/2024 was 1.52. Continue levothyroxine 100 mcg once daily. Take medication on empty stomach before other medications. # Anemia: Secondary to PCOS with heavy menstrual cycles. Continue ferrous sulfate 65 mg 2 tablets every other day, patient takes supplement due to heavy menstrual cycles to avoid iron deficiency. Recently also was on medroxyprogesterone acetate 10 mg for 10 days.CBC on 07/16/2024 with findings of RBC count 3.60, hematocrit 34.6, MCH 32.3, MPV 11.3. Will continue to monitor. # Hyperlipidemia: Lipid panel on 07/16/2024 with HDL decreased at 38, LDL 112. Continue fenofibrate daily. Also discussed importance of omega-3 fatty acids as well as intake of fiber and vitamin D. Will continue to monitor, will follow-up in 6 months with repeat lipid panel. # Vitamin D insufficiency: Vitamin D level is decreased at 18.3. Patient has not been taking 50 mcg of vitamin D daily. Will continue to monitor. # Infertility: Patient follows with [facility] advanced reproductive services in [place]. Is currently taking an oral contraceptive daily. Goal for conception, has been attempting to conceive for 2 years. Undergoing hysteroscopy next month for a uterine polyp removal. History of PCOS. Discussed that some weight loss can potentially increase chances of conception. Continue vitamins. Will continue to follow. # Obesity: Weight 191 lbs, BMI 34.93. Discussed importance of diet and lifestyle to maintain healthy weight. Will continue to monitor at subsequent visits. # Mild depression: In office PHQ-9 administered with score of 9. Patient reports good support from family and friends. Endorses symptoms related to trouble with infertility. Has been trying to conceive with her partner for the past 2 years. Also has concerns regarding her health problems and all the medications she is currently taking. Reports no SI or HI. Have offered support including counseling. Will continue to monitor mood at subsequent visits. 1. Nutrition: It is important to follow a healthy diet based on lots of vegetables and legumes and good fat. Avoid processed food and processed carbohydrates. Prepare your own meals. Read labels and avoid high fructose corn syrup, processed chemicals added to increase shelf life and preprepared meals. Avoid fast foods. Eat slowly and plan meals for a week. Try to count calories and be mindful off daily calorie intake. Get into the habit of keeping an eye on your weight by using an appropriate scale. Learn to log exercise and discussed fitness Apps like [employer] or Photomedexometer which can help keep log off calories taken versus calories burned. Local food should be preferred. Discussed Dirty Dozen Versus Clean Fifteen. Discussed healthy supplements like fish oil, Tumeric, Curcumin, Melatonin, Resveratrol, Probiotics, Vitamin-D, Alpha-Lipoic acid, Vitamin-D and coconut oil. 2. It is important to exercise regularly. Is a good habit to walk at least 30 minutes a day. Gentle weightlifting with standard precautions to protect the back. Finding activity like cycling or hiking and get into the habit of engaging in it. Stretching before and after the exercises important. It is also important to contact me if there are any problems like shortness of breath, chest pain, back pain and joint or muscle pain associated with the exercise. 3. Discussed age appropriate screening guidelines. Colonoscopy needs to start at age 50 with stool for occult blood as appropriate. There is a new test that can test for genetic abnormalities in the stool sample, Cologuard. This would not replace a colonoscopy but could be used as a screening tool for patients who do not want a colonoscopy. We discussed the importance of early detection of colon cancer. 4. Discussed current guidelines with respect to breast examination, mammogram and pap smear for early detection of breast and cervical cancer. Patient advised to follow up with these appointments. 5. Discussed safe driving and no use of smart phone while driving 6. Age-appropriate immunizations were discussed. A tetanus booster is needed every 10 years. Flu vaccine is recommended every year just before the start of the flu season. Shingles vaccine is recommended after age 50 but not all insurances cover it. Pneumonia vaccine is given after age 65 unless there are certain comorbidities for which it is started earlier. 7. Diagnostic labs were discussed. These could include/not limited to CBC CMP and lipids with fasting blood glucose and insulin levels. Vitamin D and hemoglobin A1c testing might be appropriate. All questions have been answered to patient's satisfaction. Patient verbalized understanding of diagnosis and treatments explained. Advised to call sooner prior to next visit it any questions/concerns arise. Case discussed with collaborating physician Esteban Villa who reviewed the assessment and plan. Chart, medications, labs, vital signs reviewed. Dictation was accomplished with the use of [employer] voice recognition software, which is prone to medical misidentifications and grammatical errors. This are unintentional and the practitioner does try to identify and correct these, but some could still be present. Please do not hesitate to contact practitioner for clarification. 07/13/2024 Premature contractions, supraventricular (ICD-10 - I49.1) Nava is a 29-year-old female who presents to the office today for new patient evaluation. Patient is welcomed to the practice. They are coming from [place]. Last complete physical exam with labs 1 year ago. Medications, medical history, allergies, surgeries, hospitalizations, family history, and social history were reviewed. Problem list updated. Cardiopulmonary and abdominal exam unremarkable. Patient will follow-up in office. All patient questions answered at this time. # Hyperlipidemia: Updated lipid panel pending. Continue fenofibrate 54 mg once daily. Discussed importance of diet and lifestyle to lower cholesterol levels prevent other comorbidities. Will continue to monitor. # PCOS: Continue ferrous sulfate 65 mg 2 tablets every other day, patient takes supplement due to heavy menstrual cycles to avoid iron deficiency. Recently also was on medroxyprogesterone acetate 10 mg for 10 days. Has finished this course. Continue follow-up with gynecology, patient also follows up with fertility specialist with goal to conceive. Will continue to monitor. # Hypothyroidism: Updated TSH pending, continue levothyroxine 100 mcg once daily in the morning before medications before food. Will continue to monitor. # Syncope: Patient presented to [facility] ED on 07/12/2024 for potential syncope versus seizure. Patient was on a flight home from [place], approximately 2 and half hours into flight began feeling hot and dizzy, went to use the bathroom and felt faint and collapsed. No head strike. Per ER report, no postictal state, however patient states reporting feeling confused and dizzy after event. No tongue biting or incontinence. Reportedly no convulsions however patient states that her arms did contract inward. Patient states that as a child that she reports a weeklong history of seizures of unknown etiology. CBC in the ED significant only for MCH 32.5, MPV 11.2. Normal hemoglobin and hematocrit. Basic metabolic panel within normal limits, magnesium 1.9. Chest x-ray within normal limits. EKG significant for sinus bradycardia with premature supraventricular complexes, no ST elevation depressions, no acute ischemic changes compared to previous study on 04/20/2014. Due to history of seizure activity in the past will refer to neurology for further workup. Will continue to follow. # Obesity: Weight 192 pounds, BMI 35.11. Discussed importance of lifestyle and diet for maintaining healthy weight and preventing other comorbidities. Will continue to monitor at subsequent visit. All questions have been answered to patient's satisfaction. Patient verbalized understanding of diagnosis and treatments explained. Advised to call sooner prior to next visit it any questions/concerns arise. Case discussed with collaborating physician Esteban Villa who reviewed the assessment and plan. Chart, medications, labs, vital signs reviewed. Dictation was accomplished with the use of [employer] voice recognition software, which is prone to medical misidentifications and grammatical errors. This are unintentional and the practitioner does try to identify and correct these, but some could still be present. Please do not hesitate to contact practitioner for clarification. 07/13/2024 Obesity (BMI 30-39.9) (ICD-10 - E66.9) Nava is a 29-year-old female who presents to the office today for new patient evaluation. Patient is welcomed to the practice. They are coming from [place]. Last complete physical exam with labs 1 year ago. Medications, medical history, allergies, surgeries, hospitalizations, family history, and social history were reviewed. Problem list updated. Cardiopulmonary and abdominal exam unremarkable. Patient will follow-up in office. All patient questions answered at this time. # Hyperlipidemia: Updated lipid panel pending. Continue fenofibrate 54 mg once daily. Discussed importance of diet and lifestyle to lower cholesterol levels prevent other comorbidities. Will continue to monitor. # PCOS: Continue ferrous sulfate 65 mg 2 tablets every other day, patient takes supplement due to heavy menstrual cycles to avoid iron deficiency. Recently also was on medroxyprogesterone acetate 10 mg for 10 days. Has finished this course. Continue follow-up with gynecology, patient also follows up with fertility specialist with goal to conceive. Will continue to monitor. # Hypothyroidism: Updated TSH pending, continue levothyroxine 100 mcg once daily in the morning before medications before food. Will continue to monitor. # Syncope: Patient presented to [facility] ED on 07/12/2024 for potential syncope versus seizure. Patient was on a flight home from [place], approximately 2 and half hours into flight began feeling hot and dizzy, went to use the bathroom and felt faint and collapsed. No head strike. Per ER report, no postictal state, however patient states reporting feeling confused and dizzy after event. No tongue biting or incontinence. Reportedly no convulsions however patient states that her arms did contract inward. Patient states that as a child that she reports a weeklong history of seizures of unknown etiology. CBC in the ED significant only for MCH 32.5, MPV 11.2. Normal hemoglobin and hematocrit. Basic metabolic panel within normal limits, magnesium 1.9. Chest x-ray within normal limits. EKG significant for sinus bradycardia with premature supraventricular complexes, no ST elevation depressions, no acute ischemic changes compared to previous study on 04/20/2014. Due to history of seizure activity in the past will refer to neurology for further workup. Will continue to follow. # Obesity: Weight 192 pounds, BMI 35.11. Discussed importance of lifestyle and diet for maintaining healthy weight and preventing other comorbidities. Will continue to monitor at subsequent visit. All questions have been answered to patient's satisfaction. Patient verbalized understanding of diagnosis and treatments explained. Advised to call sooner prior to next visit it any questions/concerns arise. Case discussed with collaborating physician Esteban Villa who reviewed the assessment and plan. Chart, medications, labs, vital signs reviewed. Dictation was accomplished with the use of [employer] voice recognition software, which is prone to medical misidentifications and grammatical errors. This are unintentional and the practitioner does try to identify and correct these, but some could still be present. Please do not hesitate to contact practitioner for clarification. 08/11/2024 Premature contractions, supraventricular (ICD-10 - I49.1) Patient seen and examined. Comprehensive discussion was done on the following. # Syncope: Patient presented to [facility] ED on 07/12/2024 for potential syncope versus seizure. Patient was on a flight home from [place], approximately 2 and half hours into flight began feeling hot and dizzy, went to use the bathroom and felt faint and collapsed. No head strike. Per ER report, no postictal state, however patient states reporting feeling confused and dizzy after event. No tongue biting or incontinence. Reportedly no convulsions however patient states that her arms did contract inward. Patient states that as a child that she reports a weeklong history of seizures of unknown etiology. CBC in the ED significant only for MCH 32.5, MPV 11.2. Normal hemoglobin and hematocrit. Basic metabolic panel within normal limits, magnesium 1.9. Chest x-ray within normal limits. EKG significant for sinus bradycardia with premature supraventricular complexes, no ST elevation depressions, no acute ischemic changes compared to previous study on 04/20/2014. Patient has been referred to neurology. Reports episode of syncope/seizure last week, loss of consciousness for approximately 1 minute. No associated convulsions. Will also obtain updated echocardiogram to screen for valvular abnormalities potentially contributing to symptoms. States having had a Holter monitor a few years ago with PVC. Will continue to follow. # Hypothyroidism: TSH on 07/16/2024 was 1.52. Continue levothyroxine 100 mcg once daily. Take medication on empty stomach before other medications. # Anemia: Secondary to PCOS with heavy menstrual cycles. Continue ferrous sulfate 65 mg 2 tablets every other day, patient takes supplement due to heavy menstrual cycles to avoid iron deficiency. Recently also was on medroxyprogesterone acetate 10 mg for 10 days.CBC on 07/16/2024 with findings of RBC count 3.60, hematocrit 34.6, MCH 32.3, MPV 11.3. Will continue to monitor. # Hyperlipidemia: Lipid panel on 07/16/2024 with HDL decreased at 38, LDL 112. Continue fenofibrate daily. Also discussed importance of omega-3 fatty acids as well as intake of fiber and vitamin D. Will continue to monitor, will follow-up in 6 months with repeat lipid panel. # Vitamin D insufficiency: Vitamin D level is decreased at 18.3. Patient has not been taking 50 mcg of vitamin D daily. Will continue to monitor. # Infertility: Patient follows with [facility] for advanced reproductive services in [place]. Is currently taking an oral contraceptive daily. Goal for conception, has been attempting to conceive for 2 years. Undergoing hysteroscopy next month for a uterine polyp removal. History of PCOS. Discussed that some weight loss can potentially increase chances of conception. Continue vitamins. Will continue to follow. # Obesity: Weight 191 lbs, BMI 34.93. Discussed importance of diet and lifestyle to maintain healthy weight. Will continue to monitor at subsequent visits. # Mild depression: In office PHQ-9 administered with score of 9. Patient reports good support from family and friends. Endorses symptoms related to trouble with infertility. Has been trying to conceive with her partner for the past 2 years. Also has concerns regarding her health problems and all the medications she is currently taking. Reports no SI or HI. Have offered support including counseling. Will continue to monitor mood at subsequent visits. 1. Nutrition: It is important to follow a healthy diet based on lots of vegetables and legumes and good fat. Avoid processed food and processed carbohydrates. Prepare your own meals. Read labels and avoid high fructose corn syrup, processed chemicals added to increase shelf life and preprepared meals. Avoid fast foods. Eat slowly and plan meals for a week. Try to count calories and be mindful off daily calorie intake. Get into the habit of keeping an eye on your weight by using an appropriate scale. Learn to log exercise and discussed fitness Apps like [employer] or [employer]ometer which can help keep log off calories taken versus calories burned. Local food should be preferred. Discussed Dirty Dozen Versus Clean Fifteen. Discussed healthy supplements like fish oil, Tumeric, Curcumin, Melatonin, Resveratrol, Probiotics, Vitamin-D, Alpha-Lipoic acid, Vitamin-D and coconut oil. 2. It is important to exercise regularly. Is a good habit to walk at least 30 minutes a day. Gentle weightlifting with standard precautions to protect the back. Finding activity like cycling or hiking and get into the habit of engaging in it. Stretching before and after the exercises important. It is also important to contact me if there are any problems like shortness of breath, chest pain, back pain and joint or muscle pain associated with the exercise. 3. Discussed age appropriate screening guidelines. Colonoscopy needs to start at age 50 with stool for occult blood as appropriate. There is a new test that can test for genetic abnormalities in the stool sample, Cologuard. This would not replace a colonoscopy but could be used as a screening tool for patients who do not want a colonoscopy. We discussed the importance of early detection of colon cancer. 4. Discussed current guidelines with respect to breast examination, mammogram and pap smear for early detection of breast and cervical cancer. Patient advised to follow up with these appointments. 5. Discussed safe driving and no use of smart phone while driving 6. Age-appropriate immunizations were discussed. A tetanus booster is needed every 10 years. Flu vaccine is recommended every year just before the start of the flu season. Shingles vaccine is recommended after age 50 but not all insurances cover it. Pneumonia vaccine is given after age 65 unless there are certain comorbidities for which it is started earlier. 7. Diagnostic labs were discussed. These could include/not limited to CBC CMP and lipids with fasting blood glucose and insulin levels. Vitamin D and hemoglobin A1c testing might be appropriate. All questions have been answered to patient's satisfaction. Patient verbalized understanding of diagnosis and treatments explained. Advised to call sooner prior to next visit it any questions/concerns arise. Case discussed with collaborating physician Esteban Villa who reviewed the assessment and plan. Chart, medications, labs, vital signs reviewed. Dictation was accomplished with the use of [employer] voice recognition software, which is prone to medical misidentifications and grammatical errors. This are unintentional and the practitioner does try to identify and correct these, but some could still be present. Please do not hesitate to contact practitioner for clarification. 08/11/2024 Infertility, female (ICD-10 - N97.9) Patient seen and examined. Comprehensive discussion was done on the following. # Syncope: Patient presented to [facility] ED on 07/12/2024 for potential syncope versus seizure. Patient was on a flight home from [place], approximately 2 and half hours into flight began feeling hot and dizzy, went to use the bathroom and felt faint and collapsed. No head strike. Per ER report, no postictal state, however patient states reporting feeling confused and dizzy after event. No tongue biting or incontinence. Reportedly no convulsions however patient states that her arms did contract inward. Patient states that as a child that she reports a weeklong history of seizures of unknown etiology. CBC in the ED significant only for MCH 32.5, MPV 11.2. Normal hemoglobin and hematocrit. Basic metabolic panel within normal limits, magnesium 1.9. Chest x-ray within normal limits. EKG significant for sinus bradycardia with premature supraventricular complexes, no ST elevation depressions, no acute ischemic changes compared to previous study on 04/20/2014. Patient has been referred to neurology. Reports episode of syncope/seizure last week, loss of consciousness for approximately 1 minute. No associated convulsions. Will also obtain updated echocardiogram to screen for valvular abnormalities potentially contributing to symptoms. States having had a Holter monitor a few years ago with PVC. Will continue to follow. # Hypothyroidism: TSH on 07/16/2024 was 1.52. Continue levothyroxine 100 mcg once daily. Take medication on empty stomach before other medications. # Anemia: Secondary to PCOS with heavy menstrual cycles. Continue ferrous sulfate 65 mg 2 tablets every other day, patient takes supplement due to heavy menstrual cycles to avoid iron deficiency. Recently also was on medroxyprogesterone acetate 10 mg for 10 days.CBC on 07/16/2024 with findings of RBC count 3.60, hematocrit 34.6, MCH 32.3, MPV 11.3. Will continue to monitor. # Hyperlipidemia: Lipid panel on 07/16/2024 with HDL decreased at 38, LDL 112. Continue fenofibrate daily. Also discussed importance of omega-3 fatty acids as well as intake of fiber and vitamin D. Will continue to monitor, will follow-up in 6 months with repeat lipid panel. # Vitamin D insufficiency: Vitamin D level is decreased at 18.3. Patient has not been taking 50 mcg of vitamin D daily. Will continue to monitor. # Infertility: Patient follows with [facility] advanced reproductive services in [place]. Is currently taking an oral contraceptive daily. Goal for conception, has been attempting to conceive for 2 years. Undergoing hysteroscopy next month for a uterine polyp removal. History of PCOS. Discussed that some weight loss can potentially increase chances of conception. Continue vitamins. Will continue to follow. # Obesity: Weight 191 lbs, BMI 34.93. Discussed importance of diet and lifestyle to maintain healthy weight. Will continue to monitor at subsequent visits. # Mild depression: In office PHQ-9 administered with score of 9. Patient reports good support from family and friends. Endorses symptoms related to trouble with infertility. Has been trying to conceive with her partner for the past 2 years. Also has concerns regarding her health problems and all the medications she is currently taking. Reports no SI or HI. Have offered support including counseling. Will continue to monitor mood at subsequent visits. 1. Nutrition: It is important to follow a healthy diet based on lots of vegetables and legumes and good fat. Avoid processed food and processed carbohydrates. Prepare your own meals. Read labels and avoid high fructose corn syrup, processed chemicals added to increase shelf life and preprepared meals. Avoid fast foods. Eat slowly and plan meals for a week. Try to count calories and be mindful off daily calorie intake. Get into the habit of keeping an eye on your weight by using an appropriate scale. Learn to log exercise and discussed fitness Apps like [employer] or [employer]omed[employer]ometer which can help keep log off calories taken versus calories burned. Local food should be preferred. Discussed Dirty [employer]zen Versus [employer] Fifteen. Discussed healthy supplements like fish oil, Tumeric, Curcumin, Melatonin, Resveratrol, Probiotics, Vitamin-D, Alpha-Lipoic acid, Vitamin-D and coconut oil. 2. It is important to exercise regularly. Is a good habit to walk at least 30 minutes a day. Gentle weightlifting with standard precautions to protect the back. Finding activity like cycling or hiking and get into the habit of engaging in it. Stretching before and after the exercises important. It is also important to contact me if there are any problems like shortness of breath, chest pain, back pain and joint or muscle pain associated with the exercise. 3. Discussed age appropriate screening guidelines. Colonoscopy needs to start at age 50 with stool for occult blood as appropriate. There is a new test that can test for genetic abnormalities in the stool sample, Cologuard. This would not replace a colonoscopy but could be used as a screening tool for patients who do not want a colonoscopy. We discussed the importance of early detection of colon cancer. 4. Discussed current guidelines with respect to breast examination, mammogram and pap smear for early detection of breast and cervical cancer. Patient advised to follow up with these appointments. 5. Discussed safe driving and no use of smart phone while driving 6. Age-appropriate immunizations were discussed. A tetanus booster is needed every 10 years. Flu vaccine is recommended every year just before the start of the flu season. Shingles vaccine is recommended after age 50 but not all insurances cover it. Pneumonia vaccine is given after age 65 unless there are certain comorbidities for which it is started earlier. 7. Diagnostic labs were discussed. These could include/not limited to CBC CMP and lipids with fasting blood glucose and insulin levels. Vitamin D and hemoglobin A1c testing might be appropriate. All questions have been answered to patient's satisfaction. Patient verbalized understanding of diagnosis and treatments explained. Advised to call sooner prior to next visit it any questions/concerns arise. Case discussed with collaborating physician Esteban Villa who reviewed the assessment and plan. Chart, medications, labs, vital signs reviewed. Dictation was accomplished with the use of [employer] voice recognition software, which is prone to medical misidentifications and grammatical errors. This are unintentional and the practitioner does try to identify and correct these, but some could still be present. Please do not hesitate to contact practitioner for clarification. 08/11/2024 Obesity (BMI 30-39.9) (ICD-10 - E66.9) Patient seen and examined. Comprehensive discussion was done on the following. # Syncope: Patient presented to [facility] ED on 07/12/2024 for potential syncope versus seizure. Patient was on a flight home from [place], approximately 2 and half hours into flight began feeling hot and dizzy, went to use the bathroom and felt faint and collapsed. No head strike. Per ER report, no postictal state, however patient states reporting feeling confused and dizzy after event. No tongue biting or incontinence. Reportedly no convulsions however patient states that her arms did contract inward. Patient states that as a child that she reports a weeklong history of seizures of unknown etiology. CBC in the ED significant only for MCH 32.5, MPV 11.2. Normal hemoglobin and hematocrit. Basic metabolic panel within normal limits, magnesium 1.9. Chest x-ray within normal limits. EKG significant for sinus bradycardia with premature supraventricular complexes, no ST elevation depressions, no acute ischemic changes compared to previous study on 04/20/2014. Patient has been referred to neurology. Reports episode of syncope/seizure last week, loss of consciousness for approximately 1 minute. No associated convulsions. Will also obtain updated echocardiogram to screen for valvular abnormalities potentially contributing to symptoms. States having had a Holter monitor a few years ago with PVC. Will continue to follow. # Hypothyroidism: TSH on 07/16/2024 was 1.52. Continue levothyroxine 100 mcg once daily. Take medication on empty stomach before other medications. # Anemia: Secondary to PCOS with heavy menstrual cycles. Continue ferrous sulfate 65 mg 2 tablets every other day, patient takes supplement due to heavy menstrual cycles to avoid iron deficiency. Recently also was on medroxyprogesterone acetate 10 mg for 10 days.CBC on 07/16/2024 with findings of RBC count 3.60, hematocrit 34.6, MCH 32.3, MPV 11.3. Will continue to monitor. # Hyperlipidemia: Lipid panel on 07/16/2024 with HDL decreased at 38, LDL 112. Continue fenofibrate daily. Also discussed importance of omega-3 fatty acids as well as intake of fiber and vitamin D. Will continue to monitor, will follow-up in 6 months with repeat lipid panel. # Vitamin D insufficiency: Vitamin D level is decreased at 18.3. Patient has not been taking 50 mcg of vitamin D daily. Will continue to monitor. # Infertility: Patient follows with [facility] for advanced reproductive services in [place]. Is currently taking an oral contraceptive daily. Goal for conception, has been attempting to conceive for 2 years. Undergoing hysteroscopy next month for a uterine polyp removal. History of PCOS. Discussed that some weight loss can potentially increase chances of conception. Continue vitamins. Will continue to follow. # Obesity: Weight 191 lbs, BMI 34.93. Discussed importance of diet and lifestyle to maintain healthy weight. Will continue to monitor at subsequent visits. # Mild depression: In office PHQ-9 administered with score of 9. Patient reports good support from family and friends. Endorses symptoms related to trouble with infertility. Has been trying to conceive with her partner for the past 2 years. Also has concerns regarding her health problems and all the medications she is currently taking. Reports no SI or HI. Have offered support including counseling. Will continue to monitor mood at subsequent visits. 1. Nutrition: It is important to follow a healthy diet based on lots of vegetables and legumes and good fat. Avoid processed food and processed carbohydrates. Prepare your own meals. Read labels and avoid high fructose corn syrup, processed chemicals added to increase shelf life and preprepared meals. Avoid fast foods. Eat slowly and plan meals for a week. Try to count calories and be mindful off daily calorie intake. Get into the habit of keeping an eye on your weight by using an appropriate scale. Learn to log exercise and discussed fitness Apps like Akdemiapal or Photomedexometer which can help keep log off calories taken versus calories burned. Local food should be preferred. Discussed Dirty Dozen Versus Clean Fifteen. Discussed healthy supplements like fish oil, Tumeric, Curcumin, Melatonin, Resveratrol, Probiotics, Vitamin-D, Alpha-Lipoic acid, Vitamin-D and coconut oil. 2. It is important to exercise regularly. Is a good habit to walk at least 30 minutes a day. Gentle weightlifting with standard precautions to protect the back. Finding activity like cycling or hiking and get into the habit of engaging in it. Stretching before and after the exercises important. It is also important to contact me if there are any problems like shortness of breath, chest pain, back pain and joint or muscle pain associated with the exercise. 3. Discussed age appropriate screening guidelines. Colonoscopy needs to start at age 50 with stool for occult blood as appropriate. There is a new test that can test for genetic abnormalities in the stool sample, Cologuard. This would not replace a colonoscopy but could be used as a screening tool for patients who do not want a colonoscopy. We discussed the importance of early detection of colon cancer. 4. Discussed current guidelines with respect to breast examination, mammogram and pap smear for early detection of breast and cervical cancer. Patient advised to follow up with these appointments. 5. Discussed safe driving and no use of smart phone while driving 6. Age-appropriate immunizations were discussed. A tetanus booster is needed every 10 years. Flu vaccine is recommended every year just before the start of the flu season. Shingles vaccine is recommended after age 50 but not all insurances cover it. Pneumonia vaccine is given after age 65 unless there are certain comorbidities for which it is started earlier. 7. Diagnostic labs were discussed. These could include/not limited to CBC CMP and lipids with fasting blood glucose and insulin levels. Vitamin D and hemoglobin A1c testing might be appropriate. All questions have been answered to patient's satisfaction. Patient verbalized understanding of diagnosis and treatments explained. Advised to call sooner prior to next visit it any questions/concerns arise. Case discussed with collaborating physician Esteban Villa who reviewed the assessment and plan. Chart, medications, labs, vital signs reviewed. Dictation was accomplished with the use of [employer] voice recognition software, which is prone to medical misidentifications and grammatical errors. This are unintentional and the practitioner does try to identify and correct these, but some could still be present. Please do not hesitate to contact practitioner for clarification. 08/11/2024 Depression screening (ICD-10 - Z13.31) Patient seen and examined. Comprehensive discussion was done on the following. # Syncope: Patient presented to [facility] ED on 07/12/2024 for potential syncope versus seizure. Patient was on a flight home from [place], approximately 2 and half hours into flight began feeling hot and dizzy, went to use the bathroom and felt faint and collapsed. No head strike. Per ER report, no postictal state, however patient states reporting feeling confused and dizzy after event. No tongue biting or incontinence. Reportedly no convulsions however patient states that her arms did contract inward. Patient states that as a child that she reports a weeklong history of seizures of unknown etiology. CBC in the ED significant only for MCH 32.5, MPV 11.2. Normal hemoglobin and hematocrit. Basic metabolic panel within normal limits, magnesium 1.9. Chest x-ray within normal limits. EKG significant for sinus bradycardia with premature supraventricular complexes, no ST elevation depressions, no acute ischemic changes compared to previous study on 04/20/2014. Patient has been referred to neurology. Reports episode of syncope/seizure last week, loss of consciousness for approximately 1 minute. No associated convulsions. Will also obtain updated echocardiogram to screen for valvular abnormalities potentially contributing to symptoms. States having had a Holter monitor a few years ago with PVC. Will continue to follow. # Hypothyroidism: TSH on 07/16/2024 was 1.52. Continue levothyroxine 100 mcg once daily. Take medication on empty stomach before other medications. # Anemia: Secondary to PCOS with heavy menstrual cycles. Continue ferrous sulfate 65 mg 2 tablets every other day, patient takes supplement due to heavy menstrual cycles to avoid iron deficiency. Recently also was on medroxyprogesterone acetate 10 mg for 10 days.CBC on 07/16/2024 with findings of RBC count 3.60, hematocrit 34.6, MCH 32.3, MPV 11.3. Will continue to monitor. # Hyperlipidemia: Lipid panel on 07/16/2024 with HDL decreased at 38, LDL 112. Continue fenofibrate daily. Also discussed importance of omega-3 fatty acids as well as intake of fiber and vitamin D. Will continue to monitor, will follow-up in 6 months with repeat lipid panel. # Vitamin D insufficiency: Vitamin D level is decreased at 18.3. Patient has not been taking 50 mcg of vitamin D daily. Will continue to monitor. # Infertility: Patient follows with [facility] for advanced reproductive services in [place]. Is currently taking an oral contraceptive daily. Goal for conception, has been attempting to conceive for 2 years. Undergoing hysteroscopy next month for a uterine polyp removal. History of PCOS. Discussed that some weight loss can potentially increase chances of conception. Continue vitamins. Will continue to follow. # Obesity: Weight 191 lbs, BMI 34.93. Discussed importance of diet and lifestyle to maintain healthy weight. Will continue to monitor at subsequent visits. # Mild depression: In office PHQ-9 administered with score of 9. Patient reports good support from family and friends. Endorses symptoms related to trouble with infertility. Has been trying to conceive with her partner for the past 2 years. Also has concerns regarding her health problems and all the medications she is currently taking. Reports no SI or HI. Have offered support including counseling. Will continue to monitor mood at subsequent visits. 1. Nutrition: It is important to follow a healthy diet based on lots of vegetables and legumes and good fat. Avoid processed food and processed carbohydrates. Prepare your own meals. Read labels and avoid high fructose corn syrup, processed chemicals added to increase shelf life and preprepared meals. Avoid fast foods. Eat slowly and plan meals for a week. Try to count calories and be mindful off daily calorie intake. Get into the habit of keeping an eye on your weight by using an appropriate scale. Learn to log exercise and discussed fitness Apps like [employer] or Photomedexometer which can help keep log off calories taken versus calories burned. Local food should be preferred. Discussed Dirty Dozen Versus Clean Fifteen. Discussed healthy supplements like fish oil, Tumeric, Curcumin, Melatonin, Resveratrol, Probiotics, Vitamin-D, Alpha-Lipoic acid, Vitamin-D and coconut oil. 2. It is important to exercise regularly. Is a good habit to walk at least 30 minutes a day. Gentle weightlifting with standard precautions to protect the back. Finding activity like cycling or hiking and get into the habit of engaging in it. Stretching before and after the exercises important. It is also important to contact me if there are any problems like shortness of breath, chest pain, back pain and joint or muscle pain associated with the exercise. 3. Discussed age appropriate screening guidelines. Colonoscopy needs to start at age 50 with stool for occult blood as appropriate. There is a new test that can test for genetic abnormalities in the stool sample, Cologuard. This would not replace a colonoscopy but could be used as a screening tool for patients who do not want a colonoscopy. We discussed the importance of early detection of colon cancer. 4. Discussed current guidelines with respect to breast examination, mammogram and pap smear for early detection of breast and cervical cancer. Patient advised to follow up with these appointments. 5. Discussed safe driving and no use of smart phone while driving 6. Age-appropriate immunizations were discussed. A tetanus booster is needed every 10 years. Flu vaccine is recommended every year just before the start of the flu season. Shingles vaccine is recommended after age 50 but not all insurances cover it. Pneumonia vaccine is given after age 65 unless there are certain comorbidities for which it is started earlier. 7. Diagnostic labs were discussed. These could include/not limited to CBC CMP and lipids with fasting blood glucose and insulin levels. Vitamin D and hemoglobin A1c testing might be appropriate. All questions have been answered to patient's satisfaction. Patient verbalized understanding of diagnosis and treatments explained. Advised to call sooner prior to next visit it any questions/concerns arise. Case discussed with collaborating physician Esteban Villa who reviewed the assessment and plan. Chart, medications, labs, vital signs reviewed. Dictation was accomplished with the use of [employer] voice recognition software, which is prone to medical misidentifications and grammatical errors. This are unintentional and the practitioner does try to identify and correct these, but some could still be present. Please do not hesitate to contact practitioner for clarification. 08/11/2024 Screening for substance abuse (ICD-10 - Z13.89) Patient seen and examined. Comprehensive discussion was done on the following. # Syncope: Patient presented to [facility] ED on 07/12/2024 for potential syncope versus seizure. Patient was on a flight home from [place], approximately 2 and half hours into flight began feeling hot and dizzy, went to use the bathroom and felt faint and collapsed. No head strike. Per ER report, no postictal state, however patient states reporting feeling confused and dizzy after event. No tongue biting or incontinence. Reportedly no convulsions however patient states that her arms did contract inward. Patient states that as a child that she reports a weeklong history of seizures of unknown etiology. CBC in the ED significant only for MCH 32.5, MPV 11.2. Normal hemoglobin and hematocrit. Basic metabolic panel within normal limits, magnesium 1.9. Chest x-ray within normal limits. EKG significant for sinus bradycardia with premature supraventricular complexes, no ST elevation depressions, no acute ischemic changes compared to previous study on 04/20/2014. Patient has been referred to neurology. Reports episode of syncope/seizure last week, loss of consciousness for approximately 1 minute. No associated convulsions. Will also obtain updated echocardiogram to screen for valvular abnormalities potentially contributing to symptoms. States having had a Holter monitor a few years ago with PVC. Will continue to follow. # Hypothyroidism: TSH on 07/16/2024 was 1.52. Continue levothyroxine 100 mcg once daily. Take medication on empty stomach before other medications. # Anemia: Secondary to PCOS with heavy menstrual cycles. Continue ferrous sulfate 65 mg 2 tablets every other day, patient takes supplement due to heavy menstrual cycles to avoid iron deficiency. Recently also was on medroxyprogesterone acetate 10 mg for 10 days.CBC on 07/16/2024 with findings of RBC count 3.60, hematocrit 34.6, MCH 32.3, MPV 11.3. Will continue to monitor. # Hyperlipidemia: Lipid panel on 07/16/2024 with HDL decreased at 38, LDL 112. Continue fenofibrate daily. Also discussed importance of omega-3 fatty acids as well as intake of fiber and vitamin D. Will continue to monitor, will follow-up in 6 months with repeat lipid panel. # Vitamin D insufficiency: Vitamin D level is decreased at 18.3. Patient has not been taking 50 mcg of vitamin D daily. Will continue to monitor. # Infertility: Patient follows with [facility] for advanced reproductive services in [place]. Is currently taking an oral contraceptive daily. Goal for conception, has been attempting to conceive for 2 years. Undergoing hysteroscopy next month for a uterine polyp removal. History of PCOS. Discussed that some weight loss can potentially increase chances of conception. Continue vitamins. Will continue to follow. # Obesity: Weight 191 lbs, BMI 34.93. Discussed importance of diet and lifestyle to maintain healthy weight. Will continue to monitor at subsequent visits. # Mild depression: In office PHQ-9 administered with score of 9. Patient reports good support from family and friends. Endorses symptoms related to trouble with infertility. Has been trying to conceive with her partner for the past 2 years. Also has concerns regarding her health problems and all the medications she is currently taking. Reports no SI or HI. Have offered support including counseling. Will continue to monitor mood at subsequent visits. 1. Nutrition: It is important to follow a healthy diet based on lots of vegetables and legumes and good fat. Avoid processed food and processed carbohydrates. Prepare your own meals. Read labels and avoid high fructose corn syrup, processed chemicals added to increase shelf life and preprepared meals. Avoid fast foods. Eat slowly and plan meals for a week. Try to count calories and be mindful off daily calorie intake. Get into the habit of keeping an eye on your weight by using an appropriate scale. Learn to log exercise and discussed fitness Apps like Akdemiapal or Photomedexometer which can help keep log off calories taken versus calories burned. Local food should be preferred. Discussed Dirty Dozen Versus Clean Fifteen. Discussed healthy supplements like fish oil, Tumeric, Curcumin, Melatonin, Resveratrol, Probiotics, Vitamin-D, Alpha-Lipoic acid, Vitamin-D and coconut oil. 2. It is important to exercise regularly. Is a good habit to walk at least 30 minutes a day. Gentle weightlifting with standard precautions to protect the back. Finding activity like cycling or hiking and get into the habit of engaging in it. Stretching before and after the exercises important. It is also important to contact me if there are any problems like shortness of breath, chest pain, back pain and joint or muscle pain associated with the exercise. 3. Discussed age appropriate screening guidelines. Colonoscopy needs to start at age 50 with stool for occult blood as appropriate. There is a new test that can test for genetic abnormalities in the stool sample, Cologuard. This would not replace a colonoscopy but could be used as a screening tool for patients who do not want a colonoscopy. We discussed the importance of early detection of colon cancer. 4. Discussed current guidelines with respect to breast examination, mammogram and pap smear for early detection of breast and cervical cancer. Patient advised to follow up with these appointments. 5. Discussed safe driving and no use of smart phone while driving 6. Age-appropriate immunizations were discussed. A tetanus booster is needed every 10 years. Flu vaccine is recommended every year just before the start of the flu season. Shingles vaccine is recommended after age 50 but not all insurances cover it. Pneumonia vaccine is given after age 65 unless there are certain comorbidities for which it is started earlier. 7. Diagnostic labs were discussed. These could include/not limited to CBC CMP and lipids with fasting blood glucose and insulin levels. Vitamin D and hemoglobin A1c testing might be appropriate. All questions have been answered to patient's satisfaction. Patient verbalized understanding of diagnosis and treatments explained. Advised to call sooner prior to next visit it any questions/concerns arise. Case discussed with collaborating physician Esteban Villa who reviewed the assessment and plan. Chart, medications, labs, vital signs reviewed. Dictation was accomplished with the use of [employer] voice recognition software, which is prone to medical misidentifications and grammatical errors. This are unintentional and the practitioner does try to identify and correct these, but some could still be present. Please do not hesitate to contact practitioner for clarification. Plan Of Treatment Pending Test Test Name Order Date LIPID PANEL, STANDARD 07/13/2024 LIPID PANEL, STANDARD 08/11/2024 COMPREHENSIVE METABOLIC PANEL 07/13/2024 CBC (INCLUDES DIFF/PLT) 07/13/2024 URINALYSIS, COMPLETE 07/13/2024 TSH W/REFLEX TO FT4 07/13/2024 VITAMIN D,25-OH,TOTAL,IA 07/13/2024 VITAMIN D,25-OH,TOTAL,IA 08/11/2024 Next Appt Details Provider Name:JULIO BYRNES , 02/10/2025 03:00:00 PM, [address] [facility], [facility] [address], [place], [address], Insurance Providers Payer Name Payer Address Payer Phone Subscriber Number Group Number Insured Name Patient Relationship to Insured Coverage Start Date Coverage End Date [facility] [address] [place] [address] [phone] [id number] NAVA RODRIGUEZ Self - patient is the insured 4 Medical (General) History Medical History History ICD Code seizures high cholesterol weight gain/loss thyroid disease anemia anxiety depression pcos
== END 2024-09-16 16:06 | disposition home or self-care (01) ==
PROVIDERS: Physician Assistant Medical; Emergency Provider Emergency Medicine
DX: R55 Syncope and collapse (principal); R20.2 Paresthesia of skin; E03.9 Hypothyroidism, unspecified; Z79.899 Other long term (current) drug therapy
CPT/HCPCS: 36415; 80053; 83735; 84439; 84443; 84484; 85025; 93005; 99283

== ENCOUNTER → 2024-09-16 13:15 | Outpatient (BNV) | payer BC, SELFPAY | PROVIDERS: Emergency Provider Emergency Medicine; Visit Provider Internal Medicine Cardiovascular Disease | DX: R42 Dizziness and giddiness (principal) | CPT/HCPCS: 93010 ==

== ENCOUNTER → 2024-12-17 14:43 | Outpatient (BNVA) | payer OTHER, SELFPAY | PROVIDERS: Visit Provider Physician Assistant Medical | DX: S80.02XA Contusion of left knee, initial encounter (principal); S76.311A Strain of muscle, fascia and tendon of the posterior muscle group at thigh level, right thigh, initial encounter; W18.30XA Fall on same level, unspecified, initial encounter | CPT/HCPCS: 99202 ==